=== PATIENT | female | born 1950 | race African-American/Black ===

== ENCOUNTER → 2016-10-07 | Outpatient (CLI) | payer MEDICARE, MEDICAID ==
[2016-10-07 10:15] LABS: ABSOLUTE EOSINOPHILS # (AUTO) 0.4 10^3/uL (0.0-0.6); ABSOLUTE LYMPHOCYTES (AUTO) 3.2 10^3/uL (0.5-4.7); ABSOLUTE MONOCYTES (AUTO) 0.6 10^3/uL (0.1-1.4); ABSOLUTE NEUT (AUTO) 3.3 10^3/uL (1.7-8.2); BASOPHILS % (AUTO) 0.5 % (0-2); HEMATOCRIT 30.3 % (36.0-47.0); HEMOGLOBIN 10.1 g/dL (12.0-15.5); LYMPHOCYTES % (AUTO) 42.7 % (13-45); MEAN CORPUSCULAR HEMOGLOBIN 30.5 pg (27.0-33.4); MEAN CORPUSCULAR HGB CONC 33.4 g/dL (32.0-36.0); MEAN CORPUSCULAR VOLUME 92 fl (80-97); RED BLOOD COUNT 3.31 10^6/uL (3.72-5.28); RED CELL DISTRIBUTION WIDTH 13.5 % (11.5-14.0); SEGMENTED NEUTROPHILS % (AUTO) 43.8 % (42-78); WHITE BLOOD COUNT 7.5 10^3/uL (4.0-10.5)
[2016-10-07 10:35] LABS: ANION GAP 16 (5-19); BLOOD UREA NITROGEN 60 mg/dL (7-20); CALCIUM 10.3 mg/dL (8.4-10.2); CARBON DIOXIDE 27 mmol/L (22-30); CHLORIDE 102 mmol/L (98-107); GLUCOSE 62 mg/dL (75-110); POTASSIUM 4.3 mmol/L (3.6-5.0); SODIUM 145.4 mmol/L (137-145)
== END ==
LOC: OD 09:39
PROVIDERS: ATTEND Internal Medicine Nephrology
DX: N18.4 Chronic kidney disease, stage 4 (severe) (principal); E55.9 Vitamin D deficiency, unspecified
CPT/HCPCS: 36415; 80048; 82306; 85025

== ENCOUNTER 2016-10-20 19:29 | Emergency (ER) | payer MEDICARE, MEDICAID ==
[2016-10-20] MEDS ORDERED: ASPIRIN 81 MG TABLET, CHEWABLE PO ONE (19:32)
[2016-10-20] MEDS ORDERED: PREDNISONE 20 MG TABLET PO ONE (19:56)
[2016-10-20] MEDS ORDERED: IPRATROPIUM/ALBUTEROL 0.5-2.5 MG/3 ML AMPUL NEB ONE ×3 (19:56→20:46)
--- NOTE | 2016-10-20 19:59 | ER Document Report ---
ED Cardiac - General Chief Complaint: Chest Pain Stated Complaint: CHEST PAIN Time seen by provider: 19:50 Notes: Patient is a 66-year-old female that comes by EMS for chief complaint of chest pain and shortness of breath, shortness of breath is worse on exertion. Patient states she has been dealing with a cough and productive green sputum for about 1 week, she reports intermittent wheezing. She was given nitroglycerin by EMS, she states she has minimal to no pain on the left side now. Pain did radiate towards her left shoulder area. She denies fever. She has a history of asthma, denies smoking. Other past medical history includes hypertension, hyperlipidemia, type II diabetes, diabetic neuropathy, Stage IV CKD, PATRICIA, and a history of a "silent [place]" with no stents (she reports that several years ago they did a heart catheterization but he "saw there was nothing wrong and stopped"). Patient reports she has completed an antibiotic already. TRAVEL OUTSIDE OF THE [place] IN LAST 30 DAYS: No - Related Data Allergies/Adverse Reactions: aspirin [Aspirin] Allergy (Mild, Verified 07/06/13 11:59) upset stomach Sulfa (Sulfonamide Antibiotics) Allergy (Mild, Verified 07/06/13 12:00) sores in mouth Past Medical History - General Information source: Patient - Social History Smoking Status: Never Smoker Frequency of alcohol use: None Drug Abuse: None Lives with: Family Family History: Reviewed & Not Pertinent - Past Medical History Cardiac Medical History: Reports: Hx Hypercholesterolemia, Hx Hypertension - medicated Denies: Hx Heart Attack Pulmonary Medical History: Reports: Hx Asthma - medicated/no hospitalizations Neurological Medical History: Denies: Hx Cerebrovascular Accident, Hx Seizures Endocrine Medical History: Reports: Hx Diabetes Mellitus Type 2 GI Medical History: Denies: Hx Hepatitis, Hx Hiatal Hernia, Hx Ulcer Infectious Medical History: Denies: Hx Hepatitis Past Surgical History: Reports: Hx Cardiac Catheterization. Denies: Hx Hysterectomy, Hx Mastectomy, Hx Open Heart Surgery, Hx Pacemaker Review of Systems - Review of Systems Constitutional: No symptoms reported EENT: No symptoms reported Cardiovascular: See HPI Respiratory: See HPI Gastrointestinal: No symptoms reported Genitourinary: No symptoms reported Female Genitourinary: No symptoms reported Musculoskeletal: No symptoms reported Skin: No symptoms reported Hematologic/Lymphatic: No symptoms reported Neurological/Psychological: No symptoms reported Physical Exam - Vital signs Vitals: Resp 22 H 10/20/16 19:32 Interpretation: Normal - General General appearance: Appears well In distress: None - HEENT Head: Normocephalic, Atraumatic Eyes: Normal Conjunctiva: Normal Extraocular movements intact: Yes Eyelashes: Normal Pupils: PERRL Sinus: Normal Nasal: Normal Mouth/Lips: Normal Mucous membranes: Normal Pharynx: Normal Neck: Normal - Respiratory Respiratory status: No respiratory distress. No: Labored, Tachypnea Chest status: Tender - Patient with tender generally over the left chest which is reproducible Breath sounds: Decreased air movement, Nonproductive cough - Congested nonproductive cough, Rhonchi, Wheezing - Coarse expiratory wheezes and a few scattered rhonchi bilaterally Chest palpation: Normal - Cardiovascular Rhythm: Regular Heart sounds: Normal auscultation Murmur: No - Abdominal Inspection: Normal Distension: No distension Bowel sounds: Normal Tenderness: Nontender. No: Tender, Guarding Organomegaly: No organomegaly - Back Back: Normal, Nontender - Extremities General upper extremity: Normal inspection, Nontender, Normal color, Normal ROM , Normal temperature General lower extremity: Other - 1+ bilateral lower extremity edema, no abnormal erythema noted, normal distal N/V exam - Neurological Neuro grossly intact: Yes Cognition: Normal Orientation: AAOx4 [place] Coma Scale Eye Opening: Spontaneous [place] Coma Scale Verbal: Oriented [place] Coma Scale Motor: Obeys Commands [place] Coma Scale Total: 15 Speech: Normal Cranial nerves: Normal Cerebellar coordination: Normal Motor strength normal: LUE, RUE, LLE, RLE Additional motor exam normals: 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 Patient also has a mild amount of tenderness over the left anterior chest wall.. Patient not complaining of chest pain on reevaluation. Cardiac enzymes negative despite days of reported symptoms. Chest x-ray clear, patient is not hypoxic, patient initially with loud expiratory wheezing and a few scattered rhonchi, after treatments patient improved, after additional treatments symptoms completely resolved. Patient states she feels excellent now. Suspect respiratory source of patient's symptoms, will treat for bronchitis/upper respiratory infection, cover for pneumonia, patient is to follow-up closely with her primary provider, discussed return precautions in detail, patient and significant other states satisfaction and agreement. Also discussed monitoring blood glucose, patient states that she does a sliding scale and is good at doing this and has done this before. - Vital Signs Vital signs: Temp Pulse Resp BP Pulse Ox 97.8 F 72 18 132/73 H 97 10/20/16 19:43 10/20/16 19:43 10/21/16 00:51 10/21/16 00:51 10/21/16 00:51 - Laboratory Result Diagrams: 10/20/16 20:30 10/20/16 21:40 Laboratory results interpreted by me: 10/20/16 10/20/16 20:30 21:40 RBC 2.99 L Hgb 9.1 L Hct 27.0 L BUN 44 H Creatinine 1.99 H Est GFR ( Amer) 30 L Est GFR (Non-Af Amer) 25 L AST 37 H Creatine Kinase 284 H Discharge - Discharge Clinical Impression: Wheezing, Cough Upper respiratory infection Qualifiers: URI type: unspecified URI Qualified Code(s): J06.9 - Acute upper respiratory infection, unspecified Chest pain Qualifiers: Chest pain type: unspecified Qualified Code(s): R07.9 - Chest pain, unspecified Condition: Stable Disposition: HOME, SELF-CARE Additional Instructions: Chest x-ray does not show pneumonia, examination and symptoms are consistent with upper respiratory infection/bronchitis. Take the prednisone as directed, check her sugars and adjust her insulin because this will elevate your blood sugars. Take the azithromycin as directed, take [place] if needed for pain/cough, if you do take the Colace to avoid constipation. Follow-up in the next several days with your primary care physician for additional management. Return to emergency department immediately for any concerning or worsening symptoms including worsening breathing, fever, pain, etc. Prescriptions: Azithromycin [Zithromax 250 mg Tablet] 250 mg PO ASDIR PRN #6 tablet PRN Reason: Docusate Sodium [Colace 100 mg Capsule] 100 mg PO DAILY #30 capsule Hydrocodone/Acetaminophen [[place] 5-325 mg Tablet] 1 - 2 tab PO ASDIR #10 tablet Prednisone [Deltasone 10 mg Tablet] 10 mg PO ASDIR PRN #21 tablet PRN Reason: Referrals: AYUSH WISEMAN MD [Primary Care Provider] - Follow up as needed
[2016-10-20] MEDS ORDERED: MORPHINE SULFATE 10 MG/ML INJ IV ONE (20:47)
[2016-10-20 20:54] LABS: ABSOLUTE EOSINOPHILS # (AUTO) 0.4 10^3/uL (0.0-0.6); ABSOLUTE LYMPHOCYTES (AUTO) 2.7 10^3/uL (0.5-4.7); ABSOLUTE MONOCYTES (AUTO) 0.8 10^3/uL (0.1-1.4); ABSOLUTE NEUT (AUTO) 4.6 10^3/uL (1.7-8.2); BASOPHILS % (AUTO) 0.4 % (0-2); EOSINOPHILS % (AUTO) 5.1 % (0-6); HEMOGLOBIN 9.1 g/dL (12.0-15.5); HGB HCT DIFFERENCE 0.3; LYMPHOCYTES % (AUTO) 31.5 % (13-45); MEAN CORPUSCULAR HEMOGLOBIN 30.6 pg (27.0-33.4); MEAN CORPUSCULAR HGB CONC 33.8 g/dL (32.0-36.0); MEAN CORPUSCULAR VOLUME 90 fl (80-97); MONOCYTES % (AUTO) 9.5 % (3-13); RED BLOOD COUNT 2.99 10^6/uL (3.72-5.28); RED CELL DISTRIBUTION WIDTH 13.8 % (11.5-14.0); SEGMENTED NEUTROPHILS % (AUTO) 53.5 % (42-78); WHITE BLOOD COUNT 8.7 10^3/uL (4.0-10.5)
[2016-10-20] MEDS: MAGNESIUM SULFATE/D5W 100 ML IV SCH ×2 (21:20→23:02)
[2016-10-20 22:32] LABS: ALANINE AMINOTRANSFERASE 33 U/L (9-52); ALBUMIN 3.8 g/dL (3.5-5.0); ALKALINE PHOSPHATASE 49 U/L (38-126); ANION GAP 13 (5-19); ASPARTATE AMINO TRANSFERASE 37 U/L (14-36); BILIRUBIN,DIRECT 0.2 mg/dL (0.0-0.4); BILIRUBIN,TOTAL 0.3 mg/dL (0.2-1.3); BLOOD UREA NITROGEN 44 mg/dL (7-20); CARBON DIOXIDE 30 mmol/L (22-30); CHLORIDE 100 mmol/L (98-107); CREATINE KINASE 284 U/L (30-135); CREATININE RESULT 1.99 mg/dL (0.52-1.25); GLUCOSE 98 mg/dL (75-110); POTASSIUM 4.1 mmol/L (3.6-5.0); SODIUM 143.3 mmol/L (137-145); TOTAL PROTEIN 7.1 g/dL (6.3-8.2)
[2016-10-20 22:44] LABS: CREATINE KINASE MB 1.59 ng/mL (<4.55); TROPONIN I < 0.012 ng/mL
[2016-10-21 00:58] VITALS: BP 132/73
--- NOTE | 2016-10-21 08:25 | EKG REPORT ---
SEVERITY:- ABNORMAL ECG - SINUS RHYTHM : Confirmed by: Aron Haskins MD 21-Oct-2016 08:24:29
== END 2016-10-21 01:00 | disposition home or self-care (01) ==
LOC: ER 19:29
DX: J06.9 Acute upper respiratory infection, unspecified (principal); R07.9 Chest pain, unspecified; R06.02 Shortness of breath; R05 Cough; J45.909 Unspecified asthma, uncomplicated; E11.40 Type 2 diabetes mellitus with diabetic neuropathy, unspecified; I12.9 Hypertensive chronic kidney disease with stage 1 through stage 4 chronic kidney disease, or unspecified chronic kidney disease; E11.22 Type 2 diabetes mellitus with diabetic chronic kidney disease; N18.4 Chronic kidney disease, stage 4 (severe); R60.0 Localized edema; Z88.6 Allergy status to analgesic agent; Z88.2 Allergy status to sulfonamides
CPT/HCPCS: 93005; 94640 ×2; 99285; 96375; 96365; 96366; 36415; 87040; 82553; 82550; 85025; 80053; 84484; 83880; 71010; 93010; J2270; J3475; A9270 ×2; J7512; J7620

== ENCOUNTER 2017-01-04 19:09 | Observation (INO) | payer MEDICARE, MEDICAID ==
--- NOTE | 2017-01-04 19:58 | ER Document Report ---
ED Medical Screen (RME) - General Chief Complaint: Ankle Swelling Stated Complaint: FEET AND LEG SWELLING Time Seen by Provider: 01/04/17 19:49 Information source: Patient Notes: 56-year-old female who presents today with 2 weeks of some increased leg swelling above baseline. Patient has a history as recorded including chronic renal insufficiency and a myocardial infarction. Patient denies any chest pain. She states some baseline shortness of breath. She denies any nausea, vomiting, dysuria, diarrhea. She does state some subjective fevers. She has not taken any antipyretics today TRAVEL OUTSIDE OF THE [place] IN LAST 30 DAYS: No - Related Data Allergies/Adverse Reactions: aspirin [Aspirin] Allergy (Mild, Verified 01/04/17 19:44) upset stomach Sulfa (Sulfonamide Antibiotics) Allergy (Mild, Verified 01/04/17 19:44) sores in mouth Past Medical History - Past Medical History Cardiac Medical History: Reports: Hx Hypercholesterolemia, Hx Hypertension - medicated Denies: Hx Heart Attack Pulmonary Medical History: Reports: Hx Asthma - medicated/no hospitalizations Neurological Medical History: Denies: Hx Cerebrovascular Accident, Hx Seizures Endocrine Medical History: Reports: Hx Diabetes Mellitus Type 2 Renal/ Medical History: Denies: Hx Peritoneal Dialysis GI Medical History: Denies: Hx Hepatitis, Hx Hiatal Hernia, Hx Ulcer Infectious Medical History: Denies: Hx Hepatitis Past Surgical History: Reports: Hx Cardiac Catheterization. Denies: Hx Hysterectomy, Hx Mastectomy, Hx Open Heart Surgery, Hx Pacemaker Physical Exam - Vital signs Vitals: Temp Pulse Resp BP Pulse Ox 98.1 F 94 20 140/84 H 100 01/04/17 19:46 01/04/17 19:46 01/04/17 19:46 01/04/17 19:46 01/04/17 19:46 Course - Vital Signs Vital signs: Temp Pulse Resp BP Pulse Ox 98.1 F 94 20 140/84 H 100 01/04/17 19:46 01/04/17 19:46 01/04/17 19:46 01/04/17 19:46 01/04/17 19:46
--- NOTE | 2017-01-04 21:16 | RADIOLOGY REPORT (SQ) ---
EXAM DESCRIPTION: CHEST PA/LAT COMPLETED DATE/TIME: 01/04/2017 9:06 pm REASON FOR STUDY: Increased leg swelling COMPARISON: None. EXAM PARAMETERS: NUMBER OF VIEWS: two views TECHNIQUE: Digital Frontal and Lateral radiographic views of the chest acquired. RADIATION DOSE: NA LIMITATIONS: none FINDINGS: LUNGS AND PLEURA: No opacities, masses or pneumothorax. No pleural effusion. MEDIASTINUM AND HILAR STRUCTURES: No masses or contour abnormalities. HEART AND VASCULAR STRUCTURES: Heart normal size. No evidence for failure. BONES: No acute findings. HARDWARE: None in the chest. OTHER: No other significant finding. IMPRESSION: NO SIGNIFICANT RADIOGRAPHIC FINDING IN THE CHEST. TECHNICAL DOCUMENTATION: JOB ID: [id number] [employer]- All Rights Reserved
[2017-01-04 21:29] LABS: ABSOLUTE BASOPHILS # (AUTO) 0.1 10^3/uL (0.0-0.2); ABSOLUTE EOSINOPHILS # (AUTO) 0.5 10^3/uL (0.0-0.6); ABSOLUTE MONOCYTES (AUTO) 0.8 10^3/uL (0.1-1.4); ABSOLUTE NEUT (AUTO) 4.6 10^3/uL (1.7-8.2); BASOPHILS % (AUTO) 0.7 % (0-2); EOSINOPHILS % (AUTO) 5.7 % (0-6); HEMATOCRIT 30.3 % (36.0-47.0); HEMOGLOBIN 9.9 g/dL (12.0-15.5); HGB HCT DIFFERENCE -0.6; LYMPHOCYTES % (AUTO) 33.6 % (13-45); MEAN CORPUSCULAR HEMOGLOBIN 29.8 pg (27.0-33.4); MEAN CORPUSCULAR HGB CONC 32.5 g/dL (32.0-36.0); MEAN CORPUSCULAR VOLUME 92 fl (80-97); RED BLOOD COUNT 3.31 10^6/uL (3.72-5.28); RED CELL DISTRIBUTION WIDTH 13.5 % (11.5-14.0); WHITE BLOOD COUNT 9.1 10^3/uL (4.0-10.5)
[2017-01-04 21:51] LABS: ANION GAP 15 (5-19); BLOOD UREA NITROGEN 99 mg/dL (7-20); CALCIUM 9.9 mg/dL (8.4-10.2); CARBON DIOXIDE 30 mmol/L (22-30); CHLORIDE 97 mmol/L (98-107); CREATININE RESULT 2.68 mg/dL (0.52-1.25); GLUCOSE 133 mg/dL (75-110); POTASSIUM 4.2 mmol/L (3.6-5.0); SODIUM 142.4 mmol/L (137-145)
[2017-01-04 22:03] LABS: TROPONIN I 0.013 ng/mL
--- NOTE | 2017-01-04 22:04 | EKG REPORT ---
SEVERITY:- ABNORMAL ECG - SINUS RHYTHM : Confirmed by: Rosaline Veliz 04-Jan-2017 22:04:27
--- NOTE | 2017-01-04 22:31 | ER Document Report ---
ED Extremity Problem, Lower - General Chief Complaint: Ankle Swelling Stated Complaint: FEET AND LEG SWELLING Time Seen by Provider: 01/04/17 19:49 Mode of Arrival: Ambulatory Information source: Patient TRAVEL OUTSIDE OF THE [place] IN LAST 30 DAYS: No - HPI Patient complains to provider of: Pain, Swelling Location: Leg Occurred: Other - 3 weeks Onset/Duration: Gradual Quality of pain: Achy, Fullness Severity: Moderate Pain Level: 3 Associated symptoms: denies: Chest pain, Short of breath Exacerbated by: Walking Relieved by: Nothing Notes: Patient is a 66-year-old female with a history of diabetes, hypertension, chronic kidney disease, who presents to the emergency room complaining of worsening bilateral lower extremity swelling over the past few weeks, she denies any chest pain or shortness of breath, she was recently started on metolazone daily but her symptoms have not improved at all, in fact have gotten a little worse, she reports pain from the heaviness of her feet, and difficulty walking, she denies any injury - Related Data Allergies/Adverse Reactions: aspirin [Aspirin] Allergy (Mild, Verified 01/04/17 19:44) upset stomach Sulfa (Sulfonamide Antibiotics) Allergy (Mild, Verified 01/04/17 19:44) sores in mouth Past Medical History - General Information source: Patient - Social History Smoking Status: Never Smoker Chew tobacco use (# tins/day): No Frequency of alcohol use: None Drug Abuse: None Family History: Reviewed & Not Pertinent Patient has suicidal ideation: No Patient has homicidal ideation: No - Past Medical History Cardiac Medical History: Reports: Hx Hypercholesterolemia, Hx Hypertension - medicated Denies: Hx Heart Attack Pulmonary Medical History: Reports: Hx Asthma - medicated/no hospitalizations Neurological Medical History: Denies: Hx Cerebrovascular Accident, Hx Seizures Endocrine Medical History: Reports: Hx Diabetes Mellitus Type 2 Renal/ Medical History: Denies: Hx Peritoneal Dialysis GI Medical History: Denies: Hx Hepatitis, Hx Hiatal Hernia, Hx Ulcer Infectious Medical History: Denies: Hx Hepatitis Past Surgical History: Reports: Hx Cardiac Catheterization. Denies: Hx Hysterectomy, Hx Mastectomy, Hx Open Heart Surgery, Hx Pacemaker Review of Systems - Review of Systems Constitutional: No symptoms reported EENT: No symptoms reported Cardiovascular: See HPI, Edema Respiratory: No symptoms reported Gastrointestinal: No symptoms reported Genitourinary: No symptoms reported Female Genitourinary: No symptoms reported Musculoskeletal: No symptoms reported Skin: No symptoms reported Hematologic/Lymphatic: No symptoms reported Neurological/Psychological: No symptoms reported -: Yes All other systems reviewed and negative Physical Exam - Vital signs Vitals: Temp Pulse Resp BP Pulse Ox 98.1 F 94 20 140/84 H 100 01/04/17 19:46 01/04/17 19:46 01/04/17 19:46 01/04/17 19:46 01/04/17 19:46 Interpretation: Normal - General General appearance: Appears well, Alert - HEENT Head: Normocephalic, Atraumatic Eyes: Normal Pupils: PERRL - Respiratory Respiratory status: No respiratory distress Chest status: Nontender Breath sounds: Normal Chest palpation: Normal - Cardiovascular Rhythm: Regular Heart sounds: Normal auscultation Murmur: No - Abdominal Inspection: Normal Distension: No distension Bowel sounds: Normal Tenderness: Nontender Organomegaly: No organomegaly - Back Back: Normal, Nontender - Extremities General upper extremity: Normal inspection, Nontender, Normal color, Normal ROM , Normal temperature General lower extremity: Edema, Normal temperature. No: Sin's sign - Neurological Neuro grossly intact: Yes Cognition: Normal Orientation: AAOx4 [place] Coma Scale Eye Opening: Spontaneous [place] Coma Scale Verbal: Oriented [place] Coma Scale Motor: Obeys Commands [place] Coma Scale Total: 15 Speech: Normal Motor strength normal: LUE, RUE, LLE, RLE Sensory: Normal - Psychological Associated symptoms: Normal affect, Normal mood - Skin Skin Temperature: Warm Skin Moisture: Dry Skin Color: Normal Course - Re-evaluation Re-evalutation: 01/04/17 22:31 Patient was discussed with Dr. Billingsley, immigration guard regarding her worsening kidney function with a BUN of 99 and a creatinine of 2.6, which is worse than her usual kidney function, Dr. Hadrin recommends that we admit the patient for gentle diuresis with IV Lasix, this plan was discussed with Dr. Donahue who ultimately is in agreement but also recommends that we hydrate patient gently given her worsening renal function which is likely a result of overdiuresis, this plan was discussed with patient who is in agreement - Vital Signs Vital signs: Temp Pulse Resp BP Pulse Ox 98.1 F 94 17 118/73 99 01/04/17 19:46 01/04/17 19:46 01/04/17 21:12 07/18/17 21:12 01/04/17 21:12 - Laboratory Result Diagrams: 01/04/17 21:15 01/04/17 21:15 Laboratory results interpreted by me: 01/04/17 01/04/17 21:15 21:15 RBC 3.31 L Hgb 9.9 L Hct 30.3 L Chloride 97 L BUN 99 H Creatinine 2.68 H Est GFR ( Amer) 21 L Est GFR (Non-Af Amer) 18 L Glucose 133 H - Diagnostic Test Radiology reviewed: Image reviewed, Reports reviewed - EKG Interpretation by Me EKG shows normal: Sinus rhythm Rate: Normal Rhythm: NSR Discharge - Discharge Clinical Impression: Peripheral edema Acute on chronic renal failure Qualifiers: Acute renal failure type: unspecified Chronic kidney disease stage: unspecified stage Qualified Code(s): N17.9 - Acute kidney failure, unspecified Condition: Stable Disposition: ADMITTED OBSERVATION Admitting Provider: [facility] Admitted: Telemetry
[2017-01-04] MEDS ORDERED: NORMAL SALINE 1000 ML 1,000 ML IV PRN ×2 (22:33→23:50)
[2017-01-04 22:50] LABS: APPEARANCE,URINE CLEAR; BILIRUBIN,URINE NEGATIVE (NEGATIVE); GLUCOSE, URINE NEGATIVE (NEGATIVE); KETONES,URINE NEGATIVE (NEGATIVE); LEUKOCYTE ESTERASE,URINE NEGATIVE (NEGATIVE); NITRITE,URINE NEGATIVE (NEGATIVE); PROTEIN,URINE NEGATIVE (NEGATIVE); URINE SPECIFIC GRAVITY 1.006; UROBILINOGEN,URINE NEGATIVE mg/dL (<2.0)
[2017-01-04] MEDS ORDERED: ACETAMINOPHEN 325 MG TABLET PO PRN (23:50)
[2017-01-04] MEDS ORDERED: ZOLPIDEM TARTRATE 5 MG TABLET PO PRN (23:51)
[2017-01-04] MEDS ORDERED: DOCUSATE SODIUM 100 MG CAPSULE PO PRN (23:52)
[2017-01-04] MEDS ORDERED: INSULIN GLARGINE,HUM.REC.ANLOG 1,000 UNIT/10 ML UNIT SUBCUT ONE (23:59)
[2017-01-05] MEDS ORDERED: GLUCAGON,HUMAN RECOMB 1 MG INJ IM PRN (01:41)
[2017-01-05] MEDS ORDERED: DEXTROSE 50%-WATER SYRINGE 12.5 GM/25 ML DOSE IV PRN (01:41)
[2017-01-05] MEDS ORDERED: DEXTROSE 40% GEL 15 GM TUBE PO PRN (01:41)
[2017-01-05] MEDS ORDERED: DEXTROSE 40% GEL 15 GM TUBE X 2 PO PRN (01:41)
[2017-01-05] MEDS ORDERED: DEXTROSE 50%-WATER SYRINGE 25 GM/50 ML DOSE IV PRN (01:41)
[2017-01-05] MEDS: HEPARIN SOD (PORCINE) 5,000 UNIT/ML 1 ML SYRINGE SUBCUT SCH ×3 (05:59→21:19)
[2017-01-05] MEDS: LANSOPRAZOLE 30 MG TAB.RAP.DR PO SCH (06:00)
[2017-01-05 06:30] LABS: ABSOLUTE BASOPHILS # (AUTO) 0.1 10^3/uL (0.0-0.2); ABSOLUTE EOSINOPHILS # (AUTO) 0.4 10^3/uL (0.0-0.6); ABSOLUTE LYMPHOCYTES (AUTO) 3.2 10^3/uL (0.5-4.7); ABSOLUTE MONOCYTES (AUTO) 0.8 10^3/uL (0.1-1.4); ABSOLUTE NEUT (AUTO) 4.4 10^3/uL (1.7-8.2); BASOPHILS % (AUTO) 0.6 % (0-2); HEMATOCRIT 27.5 % (36.0-47.0); HGB HCT DIFFERENCE -0.5; LYMPHOCYTES % (AUTO) 35.9 % (13-45); MEAN CORPUSCULAR HEMOGLOBIN 29.6 pg (27.0-33.4); MEAN CORPUSCULAR HGB CONC 32.6 g/dL (32.0-36.0); MEAN CORPUSCULAR VOLUME 91 fl (80-97); MONOCYTES % (AUTO) 9.2 % (3-13); RED BLOOD COUNT 3.02 10^6/uL (3.72-5.28); RED CELL DISTRIBUTION WIDTH 13.5 % (11.5-14.0); SEGMENTED NEUTROPHILS % (AUTO) 49.3 % (42-78); WHITE BLOOD COUNT 8.9 10^3/uL (4.0-10.5)
[2017-01-05 07:05] LABS: ALANINE AMINOTRANSFERASE 33 U/L (9-52); ALBUMIN 3.6 g/dL (3.5-5.0); ALKALINE PHOSPHATASE 51 U/L (38-126); ANION GAP 12 (5-19); ASPARTATE AMINO TRANSFERASE 27 U/L (14-36); BILIRUBIN,DIRECT 0.3 mg/dL (0.0-0.4); BILIRUBIN,TOTAL 0.3 mg/dL (0.2-1.3); BLOOD UREA NITROGEN 85 mg/dL (7-20); CALCIUM 9.6 mg/dL (8.4-10.2); CARBON DIOXIDE 27 mmol/L (22-30); CHLORIDE 101 mmol/L (98-107); CHOLESTEROL 117.45 mg/dL (0-200); CREATININE RESULT 2.35 mg/dL (0.52-1.25); Direct HDL 43 mg/dL (>40); GLUCOSE 129 mg/dL (75-110); TOTAL PROTEIN 6.9 g/dL (6.3-8.2); TRIGLYCERIDES 142 mg/dL (<150)
[2017-01-05 07:16] LABS: DIRECT LDL 44 mg/dL (<100)
[2017-01-05] MEDS ORDERED: SIMVASTATIN 40 MG TABLET PO SCH (08:00)
[2017-01-05] MEDS: DOCUSATE SODIUM 100 MG CAPSULE PO SCH (10:00)
[2017-01-05] MEDS: FUROSEMIDE 40 MG TABLET PO SCH (10:00)
[2017-01-05] MEDS: LEVOTHYROXINE SODIUM 0.05 MG TABLET PO SCH (10:00)
[2017-01-05] MEDS: LOSARTAN POTASSIUM 50 MG TABLET PO SCH (10:02)
--- NOTE | 2017-01-05 12:51 | PDOC H&P ---
History of Present Illness Admission Date/PCP: 01/05/17 00:32 AYUSH WISEMAN Patient complains of: She is having decreased urinary output and nettie. leg swelling History of Present Illness: JAKE ANTUNEZ is a 66 year old female with hx of DM2/HTN/Hyperlipidemia/ Hypothyroidism/CKD stage 4/Leg swelling/Anemia of chronic disease/Gout/Vitamin D def/Rhinitis/Chronic back pain/Depression/Morbid obesity, whowas having worsening leg swelling and decreased urinary out put and Metolazone 5 m qd was added by her PCP 2 days ago.But on account of worsening of symptoms. she went to ER and her BUN/Cr had increased from 44/1/9 in to 99/2.68. She was admitted for observation. Past Medical History Cardiac Medical History: Reports: Hyperlipidema, Hypertension - medicated Denies: Myocardial Infarction Pulmonary Medical History: Reports: Asthma - medicated/no hospitalizations Neurological Medical History: Denies: Seizures Endocrine Medical History: Reports: Diabetes Mellitus Type 2 GI Medical History: Denies: Hepatitis, Hiatal Hernia Hematology: Reports: Anemia - medicated Denies: Sickle Cell Disease Past Surgical History Past Surgical History: Reports: Cardiac Catheterization Denies: Amputation, Hysterectomy, Mastectomy, Pacemaker Social History Smoking Status: Never Smoker Drugs: None - Advance Directive Resuscitation Status: Full Code Family History Family History: Reviewed & Not Pertinent Parental Family History Reviewed: Yes Children Family History Reviewed: Yes Sibling(s) Family History Reviewed.: Yes Medication/Allergy Home Medications: Carvedilol [Coreg 6.25 mg Tablet] 6.25 mg PO Q12 01/05/17 Clonazepam [Klonopin 1 mg Tablet] 1 mg PO QHS 01/05/17 Desvenlafaxine Succinate [Pristiq ER] 50 mg PO QHS 01/05/17 Ergocalciferol (Vitamin D2) [Drisdol 50,000 Unit (1.25MG) Capsule] 1 cap PO GARCIA@ 1000 01/05/17 Febuxostat [Uloric 80 mg Tablet] 80 mg PO DAILY 01/05/17 Fenofibrate 160 mg PO DAILY 01/05/17 Ferrous Sulfate [Feosol 325 mg Tablet] 325 mg PO DAILY 01/05/17 Furosemide [Lasix] 40 mg PO DAILY 01/05/17 Hydrocodone Bit/Acetaminophen [Hydrocodon-Acetaminophen 5-325] 1 tab PO BIDP PRN 01/05/17 Insulin Glargine,Hum.rec.anlog [Lantus Solostar] 30 unit SQ QHS 01/05/17 Insulin Lispro [Humalog Kwikpen] 0 unit SQ TID 01/05/17 Levothyroxine Sodium [Synthroid 50 Mcg Tablet] 50 mcg PO QAM 01/05/17 Liraglutide [Victoza 2-Galdino] 1.8 mg SQ DAILY 01/05/17 Losartan Potassium [Cozaar 50 mg Tablet] 50 mg PO DAILY 01/05/17 Metolazone [Zaroxolyn 5 Mg Tablet] 5 mg PO NOON 01/05/17 Montelukast Sodium [Singulair 10 mg Tablet] 10 mg PO QHS 01/05/17 [place]-3 Acid Ethyl Esters [Lovaza 1 gm Capsule] 2 gm PO DAILY 01/05/17 Quetiapine Fumarate [Seroquel Xr] 300 mg PO QHS 01/05/17 Simvastatin 40 mg PO QHS 01/05/17 Allergies/Adverse Reactions: aspirin [Aspirin] Allergy (Mild, Verified 01/04/17 19:44) upset stomach Sulfa (Sulfonamide Antibiotics) Allergy (Mild, Verified 01/04/17 19:44) sores in mouth Review of Systems All systems: as per PMH Constitutional: PRESENT: as per HPI Eyes: PRESENT: as per HPI Ears: PRESENT: as per HPI Nose, Mouth, and Throat: PRESENT: as per HPI Breasts: PRESENT: as per HPI Cardiovascular: PRESENT: as per HPI, edema Respiratory: PRESENT: as per HPI Gastrointestinal: PRESENT: as per HPI Genitourinary: PRESENT: difficulty urinating Musculoskeletal: PRESENT: as per HPI Integumentary: PRESENT: as per HPI Neurological: PRESENT: as per HPI Psychiatric: PRESENT: as per HPI Endocrine: PRESENT: as per HPI Hematologic/Lymphatic: PRESENT: as per HPI Physical Exam Vital Signs: Temp Pulse Resp BP Pulse Ox 98.3 F 81 16 129/58 H 97 01/05/17 12:00 01/05/17 12:00 01/05/17 12:00 01/05/17 12:00 01/05/17 12:00 Intake & Output 01/04/17 01/05/17 01/06/17 06:59 06:59 06:59 Intake Total 220 Balance 220 Weight 133.9 kg General appearance: PRESENT: no acute distress, cooperative, morbidly obese Head exam: PRESENT: atraumatic, normocephalic Eye exam: PRESENT: EOMI, PERRLA Ear exam: PRESENT: TM's normal bilaterally Mouth exam: PRESENT: neck supple, tongue midline Neck exam: PRESENT: full ROM Respiratory exam: PRESENT: clear to auscultation nettie, symmetrical Cardiovascular exam: PRESENT: +S1, +S2 Pulses: PRESENT: +2 pedal pulses bilateral GI/Abdominal exam: PRESENT: normal bowel sounds, soft Rectal exam: PRESENT: deferred Extremities exam: PRESENT: full ROM Musculoskeletal exam: PRESENT: full ROM Neurological exam: PRESENT: alert, awake, oriented to person, oriented to place , oriented to time Psychiatric exam: PRESENT: normal mood Results Laboratory Results: 01/05/17 06:12 01/05/17 06:12 01/05/17 01/05/17 01/05/17 06:12 06:12 06:12 WBC 8.9 RBC 3.02 L Hgb 9.0 L Hct 27.5 L MCV 91 MCH 29.6 MCHC 32.6 RDW 13.5 Plt Count 214 Seg Neutrophils % 49.3 Lymphocytes % 35.9 Monocytes % 9.2 Eosinophils % 5.0 Basophils % 0.6 Absolute Neutrophils 4.4 Absolute Lymphocytes 3.2 Absolute Monocytes 0.8 Absolute Eosinophils 0.4 Absolute Basophils 0.1 Sodium 140.0 Potassium 4.0 Chloride 101 Carbon Dioxide 27 Anion Gap 12 BUN 85 H Creatinine 2.35 H Est GFR ( Amer) 25 L Est GFR (Non-Af Amer) 21 L Glucose 129 H Calcium 9.6 Total Bilirubin 0.3 AST 27 ALT 33 Alkaline Phosphatase 51 Total Protein 6.9 Albumin 3.6 Triglycerides 142 Cholesterol 117.45 LDL Cholesterol Direct 44 VLDL Cholesterol 28.0 HDL Cholesterol 43 TSH 3.06 Impressions: Chest X-Ray 01/04/17 19:56 IMPRESSION: NO SIGNIFICANT RADIOGRAPHIC FINDING IN THE CHEST. Assessment & Plan - Diagnosis (1) Acute on chronic renal failure Qualifiers: Acute renal failure type: unspecified Chronic kidney disease stage: stage 4 (severe) Qualified Code(s): N17.9 - Acute kidney failure, unspecified; N18.9 - Chronic kidney disease, unspecified Is this a current diagnosis for this admission?: YesPlan: Ct with cautious IV fluids normal saline at 50cc/hr; avoid all nephrotoxics; strict input/output chart; daily weight; monitor chemitries daily; f/u brand engineer, Dr Billingsley. (2) Diabetes mellitus type 2 in obese Is this a current diagnosis for this admission?: YesPlan: Ct with accucheck qac, qhs slidding scale with humalog insulin [facility] protocol; Lantus insulin 30 iu qhs subcut; Victoza 1.8 mg subcut daily; 1800 calorie ADA diet. (3) Hypertension Is this a current diagnosis for this admission?: YesPlan: Ct with Losartan 50 mg qd po; Coreg 6.25 mg BID po; 2 g sodium diet. (4) Hyperlipidemia Is this a current diagnosis for this admission?: YesPlan: Ct with Simvastatin 40 mg qhs po; Fenofibrate 160 mg qd po; 200 mg cholesterol diet. (5) Hypothyroidism Is this a current diagnosis for this admission?: YesPlan: Ct with Levothyroxine 50 mcg qd po. (6) Asthma Is this a current diagnosis for this admission?: YesPlan: Ct with Ventolin HFA- 2 puffs q6h prn; Singulair 10 mg qd po; Dulera 200/5 1 puff BID. (7) Leg swelling Is this a current diagnosis for this admission?: YesPlan: Ct with Lasix 40 mg qd po; elevate legs; hold Metolazone 5 mg po qd due to worsening kidney function. (8) Rhinitis, allergic Qualifiers: Chronicity: unspecified Is this a current diagnosis for this admission?: YesPlan: Ct with Flonase nasal spray- 1 spray daily. (9) Gout Qualifiers: Gout site: unspecified site Is this a current diagnosis for this admission?: YesPlan: Hold Uloric 80 mg qd po due to acute kidney injury. (10) Lumbago Qualifiers: Chronicity: unspecified Is this a current diagnosis for this admission?: YesPlan: Ct with [place] 5 /325 1 BID po prn. (11) Vitamin D deficiency Is this a current diagnosis for this admission?: YesPlan: Ct with Vitamin D [id number] weekly po. (12) Depression Qualifiers: Depression Type: major depressive disorder Is this a current diagnosis for this admission?: YesPlan: Ct with Pristig 50 mg qd po; Seroquel 300 mg qhs po. (13) Anxiety disorder Qualifiers: Anxiety disorder type: generalized anxiety disorder Qualified Code(s ): F41.1 - Generalized anxiety disorder Is this a current diagnosis for this admission?: YesPlan: CT with Clonazepm 1 mg qhs po. (14) DVT prophylaxis Is this a current diagnosis for this admission?: YesPlan: Ct with Heparin 5000iu q8h subcut; SCD. - Time Time Spent: 30 to 50 Minutes Medications reviewed and adjusted accordingly: Yes Anticipated discharge: Home Within: within 36 hours
[2017-01-05] MEDS ORDERED: MONTELUKAST SODIUM 10 MG TABLET PO SCH (18:00)
[2017-01-05] MEDS: INSULIN LISPRO 100 UNIT/ML 3 ML VIAL SUBCUT PRN ×2 (18:10→21:19)
--- NOTE | 2017-01-05 19:43 | PDOC CONSULTATION ---
Consultation Consult Date: 01/05/17 Attending physician:: AYUSH WISEMAN Consult reason:: I was asked by the emergency room physician last night for Dr. Donahue to see the patient because of worsening kidney function. History of Present Illness Admission Date/PCP: 01/05/17 00:32 AYUSH WISEMAN History of Present Illness: JAKE ANTUNEZ is a 66 year old female with hx of DM2/HTN/Hyperlipidemia/ Hypothyroidism/CKD stage 4/Leg swelling/Anemia of chronic disease/Gout/Vitamin D def/Rhinitis/Chronic back pain/Depression/Morbid obesity, who was having worsening leg swelling and decreased urinary out put and recently started on metolazone 5 milligrams qd was added by her PCP 2 days ago. But on account of worsening of symptoms. she went to ER and her BUN/Cr had increased from 44/1.9 he second 2016 to 99/2.68. She was admitted for observation. She was started on very careful IV fluid hydration. Her kidney function today shows a BUN of 85 and creatinine of 2.25 with estimated GFR of 25 which is slightly better. Patient's urine output is not being 25. Patient admits that her leg swelling today has been improved. She said that yesterday she had some oozing skin lesions because of too much leg swelling. I asked her about salt intake she denies it, however just tonight she ate food from the [employer] restaurant in addition to her dinner from the hospital. She denies any chest pains no shortness of breath no any other complaints. Past Medical History Cardiac Medical History: Reports: CHF-Systolic, Hyperlipidemia, Hypertension- primary Pulmonary Medical History: Reports: Asthma - medicated/no hospitalizations Endocrine Medical History: Reports: Diabetes Mellitus Type 2, Hypothyroidism, Obesity Complications of Diabetes: Reports: Nephropathy Renal/ Medical History: Reports: Chronic Kidney Disease Stage IV Musculoskeltal Medical History: Reports: Gout Psychiatric Medical History: Reports: Depression, General Anxiety Disorder Hematology Medical History: Reports Anemia of Chronic Kidney Disease, Reports Iron Deficiency Anemia Past Surgical History Past Surgical History: Reports: Appendectomy, Cardiac Catheterization, Other - Breast biopsy Social History Information Source: Patient, Office Lives with: Family Smoking Status: Former Smoker Frequency of Alcohol Use: None Drugs: None - Advance Directive Resuscitation Status: Full Code Family History Family History: Chronic Kidney Disease - Mother and sister, CVA - Sister, DM - Maternal grandmother, Hypertension - Monitor, Malignancy - Mother Parental Family History Reviewed: Yes Children Family History Reviewed: Yes Sibling(s) Family History Reviewed.: Yes Medication/Allergy Home Medications: Carvedilol [Coreg 6.25 mg Tablet] 6.25 mg PO Q12 01/05/17 Clonazepam [Klonopin 1 mg Tablet] 1 mg PO QHS 01/05/17 Desvenlafaxine Succinate [Pristiq ER] 50 mg PO QHS 01/05/17 Ergocalciferol (Vitamin D2) [Drisdol 50,000 Unit (1.25MG) Capsule] 1 cap PO GARCIA@ 1000 01/05/17 Febuxostat [Uloric 80 mg Tablet] 80 mg PO DAILY 01/05/17 Fenofibrate 160 mg PO DAILY 01/05/17 Ferrous Sulfate [Feosol 325 mg Tablet] 325 mg PO DAILY 01/05/17 Furosemide [Lasix] 40 mg PO DAILY 01/05/17 Hydrocodone Bit/Acetaminophen [Hydrocodon-Acetaminophen 5-325] 1 tab PO BIDP PRN 01/05/17 Insulin Glargine,Hum.rec.anlog [Lantus Solostar] 30 unit SQ QHS 01/05/17 Insulin Lispro [Humalog Kwikpen] 0 unit SQ TID 01/05/17 Levothyroxine Sodium [Synthroid 50 Mcg Tablet] 50 mcg PO QAM 01/05/17 Liraglutide [Victoza 2-Galdino] 1.8 mg SQ DAILY 01/05/17 Losartan Potassium [Cozaar 50 mg Tablet] 50 mg PO DAILY 01/05/17 Metolazone [Zaroxolyn 5 Mg Tablet] 5 mg PO NOON 01/05/17 Montelukast Sodium [Singulair 10 mg Tablet] 10 mg PO QHS 01/05/17 [place]-3 Acid Ethyl Esters [Lovaza 1 gm Capsule] 2 gm PO DAILY 01/05/17 Quetiapine Fumarate [Seroquel Xr] 300 mg PO QHS 01/05/17 Simvastatin 40 mg PO QHS 01/05/17 Allergies/Adverse Reactions: aspirin [Aspirin] Allergy (Mild, Verified 01/04/17 19:44) upset stomach Sulfa (Sulfonamide Antibiotics) Allergy (Mild, Verified 01/04/17 19:44) sores in mouth Review of Systems All systems: reviewed and no additional remarkable complaints except as stated Review of Systems: Constitutional: ABSENT: chills, fatigue, fever(s), headache(s), weight gain, weight loss Eyes: ABSENT: visual disturbances Ears: ABSENT: hearing changes Cardiovascular: ABSENT: chest pain, dyspnea on exertion, orthropnea, palpitations; admits lower extremity edema Respiratory: ABSENT: cough, dyspnea, hemoptysis Gastrointestinal: ABSENT: abdominal pain, constipation, diarrhea, hematemesis, hematochezia, nausea, vomiting Genitourinary: ABSENT: dysuria, hematuria Musculoskeletal: ABSENT: joint swelling Integumentary: ABSENT: rash, wounds Neurological: ABSENT: abnormal gait, abnormal speech, confusion, dizziness, focal weakness, numbness, syncope Psychiatric: ABSENT: anxiety, depression Endocrine: ABSENT: cold intolerance, heat intolerance, polydipsia, polyuria Hematologic/Lymphatic: ABSENT: easy bleeding, easy bruising, lymphadenopathy Physical Exam Vital Signs: Temp Pulse Resp BP Pulse Ox 98.2 F 85 15 143/80 H 99 01/05/17 16:00 01/05/17 16:00 01/05/17 16:00 01/05/17 16:00 01/05/17 16:00 Intake & Output 01/04/17 01/05/17 01/06/17 06:59 06:59 06:59 Intake Total 220 435 Balance 220 435 Weight 133.9 kg Exam: General appearance: no acute distress, cooperative, well-developed, well- nourished Head exam: PRESENT: atraumatic, normocephalic Eye exam: PRESENT: Conjunctiva [place], EOMI, PERRLA. ABSENT: conjunctival injection, scleral icterus Mouth exam: PRESENT: moist, neck supple, tongue midline Neck exam: PRESENT: full ROM. ABSENT: carotid bruit, JVD, lymphadenopathy, thyromegaly Respiratory exam: PRESENT: clear to auscultation bilaterally. ABSENT: rales, rhonchi, stridor, wheezes Cardiovascular exam: PRESENT: RRR, +S1, +S2. ABSENT: systolic murmur Pulses: PRESENT: normal radial pulses, normal dorsalis pedis pulses GI/Abdominal exam: PRESENT: normal bowel sounds, soft. ABSENT: guarding, mass, tenderness Rectal exam: deferred Extremities exam: PRESENT: full ROM. Grade 1 bilateral lower extremity pitting edema. Currently there is no oozing lesions in the lower extremities which the patient said has improved since yesterday. ABSENT: calf tenderness Musculoskeletal: PRESENT: full ROM. ABSENT: deformity Neurological exam: PRESENT: alert, Awake, Oriented to person, Oriented to place , Oriented to time, reflexes normal, CN II-XII grossly intact. ABSENT: motor sensory deficit Psychiatric exam: PRESENT: appropriate affect, normal mood. ABSENT: homicidal ideation, suicidal ideation Skin exam: PRESENT: intact, dry, warm. ABSENT: rash Results Laboratory Results: 01/05/17 06:12 01/05/17 06:12 01/05/17 01/05/17 01/05/17 06:12 06:12 06:12 WBC 8.9 RBC 3.02 L Hgb 9.0 L Hct 27.5 L MCV 91 MCH 29.6 MCHC 32.6 RDW 13.5 Plt Count 214 Seg Neutrophils % 49.3 Lymphocytes % 35.9 Monocytes % 9.2 Eosinophils % 5.0 Basophils % 0.6 Absolute Neutrophils 4.4 Absolute Lymphocytes 3.2 Absolute Monocytes 0.8 Absolute Eosinophils 0.4 Absolute Basophils 0.1 Sodium 140.0 Potassium 4.0 Chloride 101 Carbon Dioxide 27 Anion Gap 12 BUN 85 H Creatinine 2.35 H Est GFR ( Amer) 25 L Est GFR (Non-Af Amer) 21 L Glucose 129 H Calcium 9.6 Total Bilirubin 0.3 AST 27 ALT 33 Alkaline Phosphatase 51 Total Protein 6.9 Albumin 3.6 Triglycerides 142 Cholesterol 117.45 LDL Cholesterol Direct 44 VLDL Cholesterol 28.0 HDL Cholesterol 43 TSH 3.06 Impressions: Chest X-Ray 01/04/17 19:56 IMPRESSION: NO SIGNIFICANT RADIOGRAPHIC FINDING IN THE CHEST. Assessment & Plan - Diagnosis (1) Acute kidney injury Is this a current diagnosis for this admission?: YesPlan: This may be due to recent mild overdiuresis. Currently improving with very careful fluid hydration. No indication of any acute renal replacement therapy. (2) Acute prerenal azotemia Is this a current diagnosis for this admission?: Yes (3) Chronic kidney disease, stage IV (severe) Is this a current diagnosis for this admission?: YesPlan: This is due to combination of diabetes and hypertension. (4) Peripheral edema Is this a current diagnosis for this admission?: YesPlan: Patient might have an underlying chronic lymphedema. Advised patient for low- salt diet. Continue maintenance Lasix at 40 mg once a day. (5) Diabetes mellitus type 2 in obese Is this a current diagnosis for this admission?: Yes (6) Hypertension Is this a current diagnosis for this admission?: Yes - Notes Notes: Thank you very much for this consultation. - Time Time Spent: 50 to 70 Minutes
[2017-01-05] MEDS ORDERED: INSULIN GLARGINE,HUM.REC.ANLOG 300 UNIT/3 ML INSULN.PEN SUBCUT SCH (22:00)
[2017-01-05] MEDS ORDERED: QUETIAPINE FUMARATE 100 MG TABLET PO SCH (22:00)
[2017-01-06] MEDS: HEPARIN SOD (PORCINE) 5,000 UNIT/ML 1 ML SYRINGE SUBCUT SCH (06:13)
[2017-01-06] MEDS: LANSOPRAZOLE 30 MG TAB.RAP.DR PO SCH (06:13)
[2017-01-06 06:29] LABS: ALANINE AMINOTRANSFERASE 29 U/L (9-52); ALBUMIN 4.1 g/dL (3.5-5.0); ALKALINE PHOSPHATASE 55 U/L (38-126); ANION GAP 13 (5-19); ASPARTATE AMINO TRANSFERASE 30 U/L (14-36); BILIRUBIN,DIRECT 0.4 mg/dL (0.0-0.4); BILIRUBIN,TOTAL 0.4 mg/dL (0.2-1.3); BLOOD UREA NITROGEN 71 mg/dL (7-20); CALCIUM 9.9 mg/dL (8.4-10.2); CARBON DIOXIDE 28 mmol/L (22-30); CHLORIDE 100 mmol/L (98-107); CREATININE RESULT 2.01 mg/dL (0.52-1.25); GLUCOSE 103 mg/dL (75-110); POTASSIUM 4.1 mmol/L (3.6-5.0); SODIUM 140.8 mmol/L (137-145); TOTAL PROTEIN 7.6 g/dL (6.3-8.2)
[2017-01-06 06:39] LABS: ABSOLUTE EOSINOPHILS # (AUTO) 0.5 10^3/uL (0.0-0.6); ABSOLUTE LYMPHOCYTES (AUTO) 3.4 10^3/uL (0.5-4.7); ABSOLUTE MONOCYTES (AUTO) 0.7 10^3/uL (0.1-1.4); ABSOLUTE NEUT (AUTO) 3.2 10^3/uL (1.7-8.2); BASOPHILS % (AUTO) 0.6 % (0-2); EOSINOPHILS % (AUTO) 6.7 % (0-6); HEMATOCRIT 28.5 % (36.0-47.0); HEMOGLOBIN 9.4 g/dL (12.0-15.5); HGB HCT DIFFERENCE -0.3; LYMPHOCYTES % (AUTO) 43.3 % (13-45); MEAN CORPUSCULAR HEMOGLOBIN 29.8 pg (27.0-33.4); MEAN CORPUSCULAR HGB CONC 32.9 g/dL (32.0-36.0); MEAN CORPUSCULAR VOLUME 91 fl (80-97); MONOCYTES % (AUTO) 9.4 % (3-13); RED BLOOD COUNT 3.15 10^6/uL (3.72-5.28); RED CELL DISTRIBUTION WIDTH 13.4 % (11.5-14.0); WHITE BLOOD COUNT 7.9 10^3/uL (4.0-10.5)
[2017-01-06] MEDS: FUROSEMIDE 40 MG TABLET PO SCH (08:22)
[2017-01-06] MEDS: DOCUSATE SODIUM 100 MG CAPSULE PO SCH (09:44)
[2017-01-06] MEDS: LEVOTHYROXINE SODIUM 0.05 MG TABLET PO SCH (09:44)
[2017-01-06] MEDS: LOSARTAN POTASSIUM 50 MG TABLET PO SCH (09:44)
--- NOTE | 2017-01-06 10:05 | PDOC DISCHARGE SUMMARY ---
General - Admit/Disc Date/PCP Admission Date/Primary Care Provider: 01/05/17 00:32 AYUSH WISEMAN Discharge Date: 01/06/17 - Discharge Diagnosis (1) Acute on chronic renal failure Is this a current diagnosis for this admission?: Yes (2) Diabetes mellitus type 2 in obese Is this a current diagnosis for this admission?: Yes (3) Hypertension Is this a current diagnosis for this admission?: Yes (4) Hyperlipidemia Is this a current diagnosis for this admission?: Yes (5) Hypothyroidism Is this a current diagnosis for this admission?: Yes (6) Asthma Is this a current diagnosis for this admission?: Yes (7) Leg swelling Is this a current diagnosis for this admission?: Yes (8) Rhinitis, allergic Is this a current diagnosis for this admission?: Yes (9) Gout Is this a current diagnosis for this admission?: Yes (10) Lumbago Is this a current diagnosis for this admission?: Yes (11) Vitamin D deficiency Is this a current diagnosis for this admission?: Yes (12) Depression Is this a current diagnosis for this admission?: Yes (13) Anxiety disorder Is this a current diagnosis for this admission?: Yes (14) DVT prophylaxis Is this a current diagnosis for this admission?: Yes - Additional Information Resuscitation Status: Full Code Discharge Activity: Activity As Tolerated Home Medications: Carvedilol [Coreg 6.25 mg Tablet] 6.25 mg PO Q12 01/05/17 Clonazepam [Klonopin 1 mg Tablet] 1 mg PO QHS 01/05/17 Desvenlafaxine Succinate [Pristiq] 50 mg PO QHS 01/05/17 Ergocalciferol (Vitamin D2) [Drisdol 50,000 unit (1.25MG) Capsule] 1 cap PO GARCIA@ 1000 01/05/17 Febuxostat [Uloric 80 mg Tablet] 80 mg PO DAILY 01/05/17 Fenofibrate 160 mg PO DAILY 01/05/17 Ferrous Sulfate [Feosol 325 mg Tablet] 325 mg PO DAILY 01/05/17 Furosemide [Lasix] 40 mg PO DAILY 01/05/17 Hydrocodone Bit/Acetaminophen [Hydrocodon-Acetaminophen 5-325] 1 tab PO BIDP PRN 01/05/17 Insulin Glargine,Hum.rec.anlog [Lantus Solostar] 30 unit SQ QHS 01/05/17 Insulin Lispro [Humalog Kwikpen U-100] 0 unit SQ TID 01/05/17 Levothyroxine Sodium [Synthroid 0.05 mg Tablet] 50 mcg PO QAM 01/05/17 Liraglutide [Victoza 2-Galdino] 1.8 mg SQ DAILY 01/05/17 Losartan Potassium [Cozaar 50 mg Tablet] 50 mg PO DAILY 01/05/17 Montelukast Sodium [Singulair 10 mg Tablet] 10 mg PO QHS 01/05/17 [place]-3 Acid Ethyl Esters [Lovaza 1 gm Capsule] 2 gm PO DAILY 01/05/17 Quetiapine Fumarate [Seroquel Xr] 300 mg PO QHS 01/05/17 Simvastatin 40 mg PO QHS 01/05/17 History of Present Illness History of Present Illness: JAKE ANTUNEZ is a 66 year old female with hx of DM2/HTN/Hyperlipidemia/ Hypothyroidism/CKD stage 4/Leg swelling/Anemia of chronic disease/Gout/Vitamin D def/Rhinitis/Chronic back pain/Depression/Morbid obesity, whowas having worsening leg swelling and decreased urinary out put and Metolazone 5 m qd was added by her PCP 2 days ago.But on account of worsening of symptoms. she went to ER and her BUN/Cr had increased from 44/1/9 in to 99/2.68. She was admitted for observation. Hospital Course Hospital Course: 66 yr ol woman who was admitted for acute kidney injury due to overdiuresis. She was admitted in medical floor and had cautious hydration with IF fluids normal saline. Her bUN/cr has improved remarkably and almost back to her baseline. We have discontinued Metolazone for now.She is stable and will be discharged home today to follow up with her PCP within 1 week. She will also follow up with her offal icer poultry,Dr Billingsley. Physical Exam Vital Signs: Temp Pulse Resp BP Pulse Ox 98.6 F 92 19 133/92 H 100 01/06/17 07:55 01/06/17 07:55 01/06/17 07:55 01/06/17 07:55 01/06/17 07:55 Intake & Output 01/05/17 01/06/17 01/07/17 06:59 06:59 06:59 Intake Total 220 2585 Balance 220 2585 Weight 133.9 kg 133.9 kg General appearance: PRESENT: no acute distress, cooperative, morbidly obese, well-nourished Head exam: PRESENT: atraumatic, normocephalic Eye exam: PRESENT: EOMI, PERRLA Ear exam: PRESENT: normal external ear exam Mouth exam: PRESENT: moist, tongue midline Neck exam: PRESENT: full ROM Respiratory exam: PRESENT: clear to auscultation nettie, symmetrical Cardiovascular exam: PRESENT: +S1, +S2 Pulses: PRESENT: +2 pedal pulses bilateral GI/Abdominal exam: PRESENT: normal bowel sounds, soft Rectal exam: PRESENT: deferred Extremities exam: PRESENT: full ROM Neurological exam: PRESENT: alert, awake, oriented to person, oriented to place , oriented to time Results Laboratory Results: 01/06/17 05:24 01/06/17 05:24 01/06/17 01/06/17 05:24 05:24 WBC 7.9 RBC 3.15 L Hgb 9.4 L Hct 28.5 L MCV 91 MCH 29.8 MCHC 32.9 RDW 13.4 Plt Count 223 Seg Neutrophils % 40.0 L Lymphocytes % 43.3 Monocytes % 9.4 Eosinophils % 6.7 H Basophils % 0.6 Absolute Neutrophils 3.2 Absolute Lymphocytes 3.4 Absolute Monocytes 0.7 Absolute Eosinophils 0.5 Absolute Basophils 0.0 Sodium 140.8 Potassium 4.1 Chloride 100 Carbon Dioxide 28 Anion Gap 13 BUN 71 H Creatinine 2.01 H Est GFR ( Amer) 30 L Est GFR (Non-Af Amer) 25 L Glucose 103 Calcium 9.9 Total Bilirubin 0.4 AST 30 ALT 29 Alkaline Phosphatase 55 Total Protein 7.6 Albumin 4.1 Impressions: Chest X-Ray 01/04/17 19:56 IMPRESSION: NO SIGNIFICANT RADIOGRAPHIC FINDING IN THE CHEST.
[2017-01-06 12:59] VITALS: BP 147/64
[2017-01-06] MEDS ORDERED: CLONAZEPAM 1 MG TABLET PO SCH (22:00)
[2017-01-06] MEDS ORDERED: SIMVASTATIN 40 MG TABLET PO SCH (22:00)
== END 2017-01-06 12:30 | disposition home or self-care (01) ==
LOC: ER 19:09 → UNDOADMIN 22:51 → EH 22:51 → 4S 01-05 00:15 → INTOOBSV 01-05 00:32 → 4S 01-05 00:32
PROVIDERS: ADMIT Internal Medicine; ATTEND Internal Medicine
DX: N17.9 Acute kidney failure, unspecified (principal); I13.0 Hypertensive heart and chronic kidney disease with heart failure and stage 1 through stage 4 chronic kidney disease, or unspecified chronic kidney disease; E11.22 Type 2 diabetes mellitus with diabetic chronic kidney disease; E11.21 Type 2 diabetes mellitus with diabetic nephropathy; N18.4 Chronic kidney disease, stage 4 (severe); D63.1 Anemia in chronic kidney disease; I50.20 Unspecified systolic (congestive) heart failure; E78.5 Hyperlipidemia, unspecified; E03.9 Hypothyroidism, unspecified; J45.909 Unspecified asthma, uncomplicated; M79.89 Other specified soft tissue disorders; J30.9 Allergic rhinitis, unspecified; M10.9 Gout, unspecified; G89.29 Other chronic pain; M54.5 Low back pain; E55.9 Vitamin D deficiency, unspecified; F32.9 Major depressive disorder, single episode, unspecified; F41.9 Anxiety disorder, unspecified; E66.01 Morbid (severe) obesity due to excess calories; F41.1 Generalized anxiety disorder; Z79.899 Other long term (current) drug therapy; Z79.4 Long term (current) use of insulin; Z84.1 Family history of disorders of kidney and ureter; Z90.49 Acquired absence of other specified parts of digestive tract; Z87.891 Personal history of nicotine dependence
CPT/HCPCS: 93005; 99285; 36415 ×3; 82962 ×2; 84443; 85025 ×3; 80048; 80053 ×2; 81001; 84484; 83036; 80061; 83880; 71020; 93010; G0378 ×4; A9270 ×16; J1644 ×2; J7030 ×2; J1815

== ENCOUNTER → 2017-02-10 | Outpatient (CLI) | payer MEDICARE, MEDICAID ==
[2017-02-10 11:09] LABS: ABSOLUTE EOSINOPHILS # (AUTO) 0.3 10^3/uL (0.0-0.6); ABSOLUTE LYMPHOCYTES (AUTO) 2.5 10^3/uL (0.5-4.7); ABSOLUTE MONOCYTES (AUTO) 0.6 10^3/uL (0.1-1.4); ABSOLUTE NEUT (AUTO) 4.2 10^3/uL (1.7-8.2); BASOPHILS % (AUTO) 0.5 % (0-2); EOSINOPHILS % (AUTO) 4.5 % (0-6); HEMATOCRIT 31.3 % (36.0-47.0); HEMOGLOBIN 10.1 g/dL (12.0-15.5); LYMPHOCYTES % (AUTO) 32.1 % (13-45); MEAN CORPUSCULAR HEMOGLOBIN 29.9 pg (27.0-33.4); MEAN CORPUSCULAR HGB CONC 32.2 g/dL (32.0-36.0); MEAN CORPUSCULAR VOLUME 93 fl (80-97); MONOCYTES % (AUTO) 7.5 % (3-13); RED BLOOD COUNT 3.36 10^6/uL (3.72-5.28); RED CELL DISTRIBUTION WIDTH 13.7 % (11.5-14.0); SEGMENTED NEUTROPHILS % (AUTO) 55.4 % (42-78); WHITE BLOOD COUNT 7.7 10^3/uL (4.0-10.5)
[2017-02-10 11:22] LABS: APPEARANCE,URINE CLEAR; BILIRUBIN,URINE NEGATIVE (NEGATIVE); GLUCOSE, URINE NEGATIVE (NEGATIVE); KETONES,URINE NEGATIVE (NEGATIVE); LEUKOCYTE ESTERASE,URINE NEGATIVE (NEGATIVE); NITRITE,URINE NEGATIVE (NEGATIVE); PROTEIN,URINE NEGATIVE (NEGATIVE); URINE SPECIFIC GRAVITY 1.006; UROBILINOGEN,URINE NEGATIVE mg/dL (<2.0)
[2017-02-10 11:40] LABS: ALBUMIN 4.6 g/dL (3.5-5.0); ANION GAP 12 (5-19); BLOOD UREA NITROGEN 57 mg/dL (7-20); CALCIUM 10.6 mg/dL (8.4-10.2); CARBON DIOXIDE 29 mmol/L (22-30); CHLORIDE 100 mmol/L (98-107); CREATININE RESULT 2.38 mg/dL (0.52-1.25); GLUCOSE 143 mg/dL (75-110); PHOSPHORUS 4.5 mg/dL (2.5-4.5); POTASSIUM 4.6 mmol/L (3.6-5.0); SODIUM 141.2 mmol/L (137-145)
[2017-02-11 10:10] LABS: VITAMIN D 25-HYDROXY 28.1 ng/mL (30.0-100.0)
[2017-02-12 10:37] LABS: CREATININE URINE 64.8 mg/dL (Not Estab.)
== END ==
LOC: OD 09:43
PROVIDERS: ATTEND Internal Medicine Nephrology
DX: N18.4 Chronic kidney disease, stage 4 (severe) (principal); E55.9 Vitamin D deficiency, unspecified
CPT/HCPCS: 36415; 80048; 81001; 82040; 82043; 82306; 82570; 83970; 84100; 85025

== ENCOUNTER 2017-05-26 17:33 | Emergency (ER) | payer MEDICARE, MEDICAID ==
--- NOTE | 2017-05-26 18:04 | ER Document Report ---
HPI - HPI Patient complains to provider of: Congested cough Onset: Other - 2 days Pain Level: 5 Context: 66-year-old diabetic obese female with asthma has congested cough for 2 days. She saw her primary care Dr. Donahue on Tuesday and did not have any symptoms. No fever. No chest pain or shortness of breath. No abdominal pain. No nausea vomiting or diarrhea. Glucose was 135 this morning. They have a nebulizer at home but no medicine for it. Associated Symptoms: None Exacerbated by: Denies Relieved by: Denies Similar symptoms previously: No Recently seen / treated by doctor: No - ROS ROS below otherwise negative: Yes Systems Reviewed and Negative: Yes All other systems reviewed and negative - REPRODUCTIVE Reproductive: DENIES: : Past Medical History - General Information source: Patient - Social History Smoking Status: Never Smoker Frequency of alcohol use: None Drug Abuse: None Lives with: Family Family History: Reviewed & Not Pertinent - Past Medical History Cardiac Medical History: Reports: Hx Hypercholesterolemia, Hx Hypertension - medicated Pulmonary Medical History: Reports: Hx Asthma - medicated/no hospitalizations Endocrine Medical History: Reports: Hx Diabetes Mellitus Type 2, Hx Hypothyroidism Renal/ Medical History: Denies: Hx Peritoneal Dialysis Musculoskeltal Medical History: Reports Hx Gout Psychiatric Medical History: Reports: Hx Depression Past Surgical History: Reports: Hx Appendectomy, Hx Cardiac Catheterization, Other - Breast biopsy Vertical Provider Document - CONSTITUTIONAL Agree With Documented VS: Yes Exam Limitations: No Limitations - INFECTION CONTROL TRAVEL OUTSIDE OF THE [place] IN LAST 30 DAYS: No - HEENT HEENT: Normocephalic, Pharyngeal Erythema - mild. negative: Conjuctival Injection, Tympanic Membrane Red, Tympanic Membrane Bulging - NECK Neck: Supple. negative: Lymphadenopathy-Left, Lymphadenopathy-Right - RESPIRATORY Respiratory: Wheezing - bilaterally O2 Sat by Pulse Oximetry: 99 - CARDIOVASCULAR Cardiovascular: Regular Rate, Regular Rhythm - GI/ABDOMEN Gastrointestinal: Abdomen Soft, Abdomen Non-Tender - BACK Back: Normal Inspection - MUSCULOSKELETAL/EXTREMETIES Musculoskeletal/Extremeties: WINTER VITAL - NEURO Level of Consciousness: Awake, Alert, Appropriate - DERM Integumentary: Warm, Dry, No Rash Course - Re-evaluation Re-evalutation: 05/26/17 19:45 Chest x-ray is negative per radiologist, no wheezing, coarse cough, because of her risk factors of diabetes I will treat her with an antibiotic prednisone and albuterol Nebules because they have a nebulizer that she can use at home. We will have her follow-up with her primary care doctor tomorrow. 05/26/17 19:54 - Vital Signs Vital signs: Temp Pulse Resp BP Pulse Ox 99.2 F 78 20 131/65 H 99 05/26/17 17:46 05/26/17 17:46 05/26/17 17:46 05/26/17 17:46 05/26/17 17:46 Discharge - Discharge Clinical Impression: diabetes Asthmatic bronchitis Qualifiers: Asthma severity: mild Asthma persistence: intermittent Asthma complication type : with acute exacerbation Qualified Code(s): J45.21 - Mild intermittent asthma with (acute) exacerbation Condition: Good Disposition: HOME, SELF-CARE Instructions: Asthma ([facility]), Azithromycin ([facility]), Bronchitis With Bronchospasm ( Wheezing) ([facility]), Inhaled Bronchodilators ([facility]), Steroid Medication Additional Instructions: go see dr. perez tomorrow for recheck return to ER if worse tonight use the nebulizer every 3-4 hours finish the antibiotics plenty of fluids watch your glucose carefully Prescriptions: Albuterol Sulfate [Ventolin 0.083% Neb 2.5 mg/3 mL Ampul] 2.5 mg NEB Q3HP PRN # 25 vial PRN Reason: Azithromycin [Zithromax] 250 mg PO DAILY #4 tablet Prednisone [Deltasone 20 mg Tablet] 40 mg PO DAILY #8 tablet Referrals: AYUSH PEREZ MD [ACTIVE STAFF] - Follow up tomorrow
[2017-05-26] MEDS ORDERED: IPRATROPIUM/ALBUTEROL 0.5-2.5 MG/3 ML AMPUL NEB ONE (18:10)
[2017-05-26] MEDS ORDERED: ALBUTEROL SULFATE 0.083% NEB 2.5 MG/3 ML AMPUL NEB ONE (18:10)
[2017-05-26] MEDS ORDERED: PREDNISONE 20 MG TABLET PO ONE (18:10)
--- NOTE | 2017-05-26 19:07 | RADIOLOGY REPORT (SQ) ---
EXAM DESCRIPTION: CHEST PA/LAT COMPLETED DATE/TIME: 05/26/2017 6:59 pm REASON FOR STUDY: cough, wheeze COMPARISON: 01/04/2017 EXAM PARAMETERS: NUMBER OF VIEWS: two views TECHNIQUE: Digital Frontal and Lateral radiographic views of the chest acquired. RADIATION DOSE: NA LIMITATIONS: none FINDINGS: LUNGS AND PLEURA: No opacities, masses or pneumothorax. No pleural effusion. MEDIASTINUM AND HILAR STRUCTURES: No masses or contour abnormalities. HEART AND VASCULAR STRUCTURES: Heart normal size. No evidence for failure. BONES: Chronic sclerotic changes of the humeral heads. HARDWARE: None in the chest. OTHER: No other significant finding. IMPRESSION: No acute pulmonary disease. TECHNICAL DOCUMENTATION: JOB ID: [id number] [employer]- All Rights Reserved
[2017-05-26] MEDS ORDERED: AZITHROMYCIN 250 MG TABLET PO ONE (19:52)
[2017-05-26 20:58] VITALS: BP 111/88
== END 2017-05-26 20:35 | disposition home or self-care (01) ==
LOC: ER 17:33
DX: J45.21 Mild intermittent asthma with (acute) exacerbation (principal); R05 Cough; I10 Essential (primary) hypertension; E11.9 Type 2 diabetes mellitus without complications
CPT/HCPCS: 94640 ×2; 99283; 71020; A9270 ×4; J7512; J7620

== ENCOUNTER → 2017-06-16 | Outpatient (CLI) | payer MEDICARE, MEDICAID ==
[2017-06-16 10:33] LABS: ABSOLUTE BASOPHILS # (AUTO) 0.1 10^3/uL (0.0-0.2); ABSOLUTE EOSINOPHILS # (AUTO) 0.4 10^3/uL (0.0-0.6); ABSOLUTE LYMPHOCYTES (AUTO) 2.1 10^3/uL (0.5-4.7); ABSOLUTE MONOCYTES (AUTO) 0.4 10^3/uL (0.1-1.4); ABSOLUTE NEUT (AUTO) 2.7 10^3/uL (1.7-8.2); BASOPHILS % (AUTO) 1.1 % (0-2); EOSINOPHILS % (AUTO) 6.3 % (0-6); HEMATOCRIT 31.2 % (36.0-47.0); HEMOGLOBIN 10.1 g/dL (12.0-15.5); LYMPHOCYTES % (AUTO) 37.1 % (13-45); MEAN CORPUSCULAR HEMOGLOBIN 29.1 pg (27.0-33.4); MEAN CORPUSCULAR HGB CONC 32.3 g/dL (32.0-36.0); MEAN CORPUSCULAR VOLUME 90 fl (80-97); MONOCYTES % (AUTO) 7.6 % (3-13); PLATELET COUNT 228 10^3/uL (150-450); RED BLOOD COUNT 3.46 10^6/uL (3.72-5.28); RED CELL DISTRIBUTION WIDTH 14.5 % (11.5-14.0); SEGMENTED NEUTROPHILS % (AUTO) 47.9 % (42-78); TOTAL CELLS COUNTED % (AUTO) 100 %; WHITE BLOOD COUNT 5.7 10^3/uL (4.0-10.5)
[2017-06-16 10:59] LABS: ANION GAP 15 (5-19); BLOOD UREA NITROGEN 45 mg/dL (7-20); CALCIUM 10.6 mg/dL (8.4-10.2); CARBON DIOXIDE 25 mmol/L (22-30); CHLORIDE 103 mmol/L (98-107); GLUCOSE 269 mg/dL (75-110); POTASSIUM 4.2 mmol/L (3.6-5.0); SODIUM 142.8 mmol/L (137-145)
== END ==
LOC: OD 09:37
PROVIDERS: ATTEND Internal Medicine Nephrology
DX: N18.4 Chronic kidney disease, stage 4 (severe) (principal); E55.9 Vitamin D deficiency, unspecified
CPT/HCPCS: 36415; 80048; 82306; 85025

== ENCOUNTER → 2017-10-24 | Outpatient (CLI) | payer MEDICARE, MEDICAID ==
[2017-10-24 11:43] LABS: ABSOLUTE EOSINOPHILS # (AUTO) 0.3 10^3/uL (0.0-0.6); ABSOLUTE LYMPHOCYTES (AUTO) 2.4 10^3/uL (0.5-4.7); ABSOLUTE MONOCYTES (AUTO) 0.5 10^3/uL (0.1-1.4); ABSOLUTE NEUT (AUTO) 3.4 10^3/uL (1.7-8.2); BASOPHILS % (AUTO) 0.7 % (0-2); EOSINOPHILS % (AUTO) 4.3 % (0-6); HEMATOCRIT 33.6 % (36.0-47.0); HEMOGLOBIN 11.1 g/dL (12.0-15.5); LYMPHOCYTES % (AUTO) 35.4 % (13-45); MEAN CORPUSCULAR HEMOGLOBIN 30.4 pg (27.0-33.4); MEAN CORPUSCULAR VOLUME 92 fl (80-97); MONOCYTES % (AUTO) 7.9 % (3-13); PLATELET COUNT 237 10^3/uL (150-450); RED BLOOD COUNT 3.65 10^6/uL (3.72-5.28); RED CELL DISTRIBUTION WIDTH 13.3 % (11.5-14.0); SEGMENTED NEUTROPHILS % (AUTO) 51.7 % (42-78); TOTAL CELLS COUNTED % (AUTO) 100 %; WHITE BLOOD COUNT 6.6 10^3/uL (4.0-10.5)
[2017-10-24 11:52] LABS: APPEARANCE,URINE CLEAR; BILIRUBIN,URINE NEGATIVE (NEGATIVE); COLOR,URINE COLORLESS; GLUCOSE, URINE 50 mg/dL (NEGATIVE); KETONES,URINE NEGATIVE (NEGATIVE); LEUKOCYTE ESTERASE,URINE NEGATIVE (NEGATIVE); NITRITE,URINE NEGATIVE (NEGATIVE); PROTEIN,URINE NEGATIVE (NEGATIVE); URINE SPECIFIC GRAVITY 1.005; UROBILINOGEN,URINE NEGATIVE mg/dL (<2.0)
[2017-10-24 11:56] LABS: ALBUMIN 4.5 g/dL (3.5-5.0); ANION GAP 15 (5-19); BLOOD UREA NITROGEN 60 mg/dL (7-20); CALCIUM 10.6 mg/dL (8.4-10.2); CARBON DIOXIDE 28 mmol/L (22-30); CHLORIDE 101 mmol/L (98-107); GLUCOSE 222 mg/dL (75-110); PHOSPHORUS 4.3 mg/dL (2.5-4.5); POTASSIUM 4.8 mmol/L (3.6-5.0); SODIUM 144.4 mmol/L (137-145)
[2017-10-25 12:38] LABS: CREATININE URINE 17.5 mg/dL (Not Estab.); MICROALBUMIN URINE 20.5 ug/mL (Not Estab.)
== END ==
LOC: OD 10:33
PROVIDERS: ATTEND Internal Medicine Nephrology
DX: N18.3 Chronic kidney disease, stage 3 (moderate) (principal); E11.21 Type 2 diabetes mellitus with diabetic nephropathy; D63.1 Anemia in chronic kidney disease; E55.9 Vitamin D deficiency, unspecified
CPT/HCPCS: 36415; 80048; 81001; 82040; 82043; 82306; 82570; 83970; 84100; 85025

== ENCOUNTER → 2017-12-05 | Outpatient (CLI) | payer MEDICARE, MEDICAID ==
--- NOTE | 2017-12-05 20:00 | WOMENS IMAGING REPORT ---
EXAM DESCRIPTION: BILAT SCREENING MAMMO W/CAD COMPLETED DATE/TIME: 12/05/2017 11:05 am REASON FOR STUDY: SCREENING MAMMO Z12.31 ENCNTR SCREEN MAMMOGRAM FOR MALIGNANT NEOPLASM OF SHELIA COMPARISON: 2014 07 TECHNIQUE: Standard craniocaudal and mediolateral oblique views of each breast recorded using Tempoliba l acquisition. LIMITATIONS: None. FINDINGS: Findings present which are benign by mammographic criteria. No suspicious masses, calcifi cations or architectural distortion. Pertinent benign findings: Stable bilateral breast parenchymal calcifications. Old bilateral stereot actic biopsy clips. Read with the assistance of CAD. .[facility] - R2 Cenova Version 1.3 .[facility] Imaging - R2 Cenova Version 1.3 .[facility] Imaging - R2 Cenova Version 2.4 .[facility] - R2 Cenova Version 2.4 .[facility] - R2 Field Observer Version 9.2 Benign mammographic findings may include one or more of the following: Smooth masses, popcorn/rim/co arse calcifications, asymmetries, post-procedure changes, and lesions with long-standing stability. IMPRESSION: BENIGN MAMMOGRAPHIC FINDINGS. BIRADS 2 BREAST DENSITY: b. There are scattered areas of fibroglandular density. BIRAD: 2 BENIGN FINDING(S) RECOMMENDATION: ROUTINE SCREENING Please continue yearly bilateral screening in November 2018. Consider bilateral screening tomosynthesis COMMENT: The patient has been notified of the results by letter per [place] requirements. Additional no tification policies are in place for contacting patient with suspicious or incomplete findings. Quality ID #[id number]: The [employer] recommends an annual screening mammogram for women aged 40 years or over. This facility utilizes a reminder system to ensure that all patients receive reminder letters, and/or direct phone calls for appointments. This includes reminders for routine scr eening mammograms, diagnostic mammograms, or other Breast Imaging Interventions when appropriate. Th is patient will be placed in the appropriate reminder system. The [employer] (ACR) has developed recommendations for screening MRI of the breast s in certain patient populations, to be used in conjunction with mammography. Breast MRI surveillanc e may be appropriate for women with more than 20% lifetime risk of developing breast cancer as deter mined by genetic testing, significant family history of the disease, or history of mantle radiation f or Hodgkins Disease. ACR Practice Guidelines 2008. TECHNICAL DOCUMENTATION: FINDING NUMBER: (1) ASSESSMENT: (1) JOB ID: [id number] [employer]- All Rights Reserved Reading location - IP/workstation name: [email or web address]
== END ==
LOC: WI 10:31
PROVIDERS: ATTEND Internal Medicine
DX: Z12.31 Encounter for screening mammogram for malignant neoplasm of breast (principal)
CPT/HCPCS: 77067

== ENCOUNTER → 2018-02-27 | Outpatient (CLI) | payer MEDICARE, MEDICAID ==
[2018-02-27 12:38] LABS: ABSOLUTE EOSINOPHILS # (AUTO) 0.3 10^3/uL (0.0-0.6); ABSOLUTE MONOCYTES (AUTO) 0.6 10^3/uL (0.1-1.4); ABSOLUTE NEUT (AUTO) 3.9 10^3/uL (1.7-8.2); BASOPHILS % (AUTO) 0.5 % (0-2); EOSINOPHILS % (AUTO) 4.1 % (0-6); HEMATOCRIT 32.9 % (36.0-47.0); LYMPHOCYTES % (AUTO) 38.5 % (13-45); MEAN CORPUSCULAR HEMOGLOBIN 29.9 pg (27.0-33.4); MEAN CORPUSCULAR HGB CONC 33.4 g/dL (32.0-36.0); MEAN CORPUSCULAR VOLUME 89 fl (80-97); MONOCYTES % (AUTO) 7.1 % (3-13); PLATELET COUNT 238 10^3/uL (150-450); RED BLOOD COUNT 3.68 10^6/uL (3.72-5.28); RED CELL DISTRIBUTION WIDTH 13.3 % (11.5-14.0); SEGMENTED NEUTROPHILS % (AUTO) 49.8 % (42-78); TOTAL CELLS COUNTED % (AUTO) 100 %; WHITE BLOOD COUNT 7.9 10^3/uL (4.0-10.5)
[2018-02-27 13:01] LABS: ANION GAP 13 (5-19); BLOOD UREA NITROGEN 47 mg/dL (7-20); CALCIUM 10.4 mg/dL (8.4-10.2); CARBON DIOXIDE 29 mmol/L (22-30); CHLORIDE 100 mmol/L (98-107); GLUCOSE 105 mg/dL (75-110); POTASSIUM 4.2 mmol/L (3.6-5.0); SODIUM 141.9 mmol/L (137-145)
== END ==
LOC: OD 10:38
PROVIDERS: ATTEND Internal Medicine
DX: E11.22 Type 2 diabetes mellitus with diabetic chronic kidney disease (principal); N18.3 Chronic kidney disease, stage 3 (moderate); D63.1 Anemia in chronic kidney disease
CPT/HCPCS: 36415; 80048; 85025

== ENCOUNTER → 2018-04-10 | Outpatient (CLI) | payer MEDICARE, MEDICAID ==
[2018-04-10 11:34] LABS: ABSOLUTE EOSINOPHILS # (AUTO) 0.3 10^3/uL (0.0-0.6); ABSOLUTE LYMPHOCYTES (AUTO) 2.6 10^3/uL (0.5-4.7); ABSOLUTE MONOCYTES (AUTO) 0.5 10^3/uL (0.1-1.4); ABSOLUTE NEUT (AUTO) 3.9 10^3/uL (1.7-8.2); BASOPHILS % (AUTO) 0.7 % (0-2); EOSINOPHILS % (AUTO) 3.7 % (0-6); HEMATOCRIT 32.4 % (36.0-47.0); HEMOGLOBIN 10.6 g/dL (12.0-15.5); LYMPHOCYTES % (AUTO) 35.9 % (13-45); MEAN CORPUSCULAR HGB CONC 32.9 g/dL (32.0-36.0); MEAN CORPUSCULAR VOLUME 88 fl (80-97); MONOCYTES % (AUTO) 6.8 % (3-13); PLATELET COUNT 273 10^3/uL (150-450); RED BLOOD COUNT 3.66 10^6/uL (3.72-5.28); RED CELL DISTRIBUTION WIDTH 13.6 % (11.5-14.0); SEGMENTED NEUTROPHILS % (AUTO) 52.9 % (42-78); TOTAL CELLS COUNTED % (AUTO) 100 %; WHITE BLOOD COUNT 7.3 10^3/uL (4.0-10.5)
[2018-04-10 11:59] LABS: ANION GAP 11 (5-19); BLOOD UREA NITROGEN 48 mg/dL (7-20); CARBON DIOXIDE 28 mmol/L (22-30); CHLORIDE 102 mmol/L (98-107); GLUCOSE 135 mg/dL (75-110); POTASSIUM 4.9 mmol/L (3.6-5.0); SODIUM 141.2 mmol/L (137-145)
[2018-04-11 13:37] LABS: CREATININE URINE 30.5 mg/dL (Not Estab.); MICROALBUMIN URINE 26.2 ug/mL (Not Estab.)
== END ==
LOC: OD 10:37
PROVIDERS: ATTEND Internal Medicine Nephrology
DX: E11.22 Type 2 diabetes mellitus with diabetic chronic kidney disease (principal); N18.3 Chronic kidney disease, stage 3 (moderate); D63.1 Anemia in chronic kidney disease
CPT/HCPCS: 36415; 80048; 82043; 82570; 85025

== ENCOUNTER → 2018-08-14 | Outpatient (CLI) | payer MEDICARE, MEDICAID ==
[2018-08-14 10:29] LABS: ABSOLUTE BASOPHILS # (AUTO) 0.1 10^3/uL (0.0-0.2); ABSOLUTE EOSINOPHILS # (AUTO) 0.2 10^3/uL (0.0-0.6); ABSOLUTE LYMPHOCYTES (AUTO) 2.1 10^3/uL (0.5-4.7); ABSOLUTE MONOCYTES (AUTO) 0.6 10^3/uL (0.1-1.4); ABSOLUTE NEUT (AUTO) 4.7 10^3/uL (1.7-8.2); BASOPHILS % (AUTO) 0.9 % (0-2); EOSINOPHILS % (AUTO) 2.9 % (0-6); HEMATOCRIT 33.9 % (36.0-47.0); HEMOGLOBIN 11.2 g/dL (12.0-15.5); LYMPHOCYTES % (AUTO) 26.9 % (13-45); MEAN CORPUSCULAR HEMOGLOBIN 29.3 pg (27.0-33.4); MEAN CORPUSCULAR VOLUME 89 fl (80-97); MONOCYTES % (AUTO) 7.8 % (3-13); PLATELET COUNT 256 10^3/uL (150-450); RED BLOOD COUNT 3.82 10^6/uL (3.72-5.28); RED CELL DISTRIBUTION WIDTH 13.4 % (11.5-14.0); SEGMENTED NEUTROPHILS % (AUTO) 61.5 % (42-78); TOTAL CELLS COUNTED % (AUTO) 100 %; WHITE BLOOD COUNT 7.7 10^3/uL (4.0-10.5)
[2018-08-14 10:53] LABS: ALBUMIN 4.2 g/dL (3.5-5.0); ANION GAP 8 (5-19); BLOOD UREA NITROGEN 38 mg/dL (7-20); CARBON DIOXIDE 29 mmol/L (22-30); CHLORIDE 105 mmol/L (98-107); GLUCOSE 205 mg/dL (75-110); IRON(TIBC) 39.8 ug/dL (37-170); PHOSPHORUS 3.3 mg/dL (2.5-4.5); POTASSIUM 4.7 mmol/L (3.6-5.0); SODIUM 142.3 mmol/L (137-145)
[2018-08-14 10:55] LABS: APPEARANCE,URINE SLIGHTLY-CLOUDY; BILIRUBIN,URINE NEGATIVE (NEGATIVE); COLOR,URINE YELLOW; GLUCOSE, URINE 50 mg/dL (NEGATIVE); KETONES,URINE NEGATIVE (NEGATIVE); LEUKOCYTE ESTERASE,URINE LARGE (NEGATIVE); NITRITE,URINE NEGATIVE (NEGATIVE); PROTEIN,URINE NEGATIVE (NEGATIVE); URINE SPECIFIC GRAVITY 1.011; UROBILINOGEN,URINE NEGATIVE mg/dL (<2.0)
[2018-08-15 10:38] LABS: MICROALBUMIN URINE 122.3 ug/mL (Not Estab.)
== END ==
LOC: OD 09:47
PROVIDERS: ATTEND Internal Medicine Nephrology
DX: E11.21 Type 2 diabetes mellitus with diabetic nephropathy (principal); N18.3 Chronic kidney disease, stage 3 (moderate); D63.1 Anemia in chronic kidney disease; R80.9 Proteinuria, unspecified
CPT/HCPCS: 36415; 80048; 81001; 82040; 82043; 82306; 82570; 82728; 83540; 83550; 83970; 84100; 85025

== ENCOUNTER → 2018-09-21 | Outpatient (CLI) | payer MEDICARE, MEDICAID ==
--- NOTE | 2018-09-21 16:21 | RADIOLOGY REPORT (SQ) ---
EXAM DESCRIPTION: SHOULDER LEFT 2 OR MORE VIEWS COMPLETED DATE/TIME: 09/21/2018 4:06 pm REASON FOR STUDY: M19.012 PRIMARY OSTEOARTHRITIS, LEFT SHOULDER M19.012 PRIMARY OSTEOARTHRITIS, LEF T SHOULDER COMPARISON: 04/12/2016 NUMBER OF VIEWS: Three views. TECHNIQUE: Internal rotation, external rotation, and Y view images acquired of the left shoulder. LIMITATIONS: None. FINDINGS: MINERALIZATION: Normal. BONES: No acute fracture or dislocation. No worrisome bone lesions. JOINTS: Marked severe advanced glenohumeral arthrosis with mild to moderate interval progression sug gested since the prior examination. VISUALIZED LUNGS AND RIBS: No pneumothorax. No rib fracture. SOFT TISSUES: No radiopaque foreign body. OTHER: No other significant finding. IMPRESSION: 1. Marked severe advanced glenohumeral arthrosis with mild to moderate interval progres kourtney suggested since examination dated 04/12/2016. 2. No acute osseous findings. TECHNICAL DOCUMENTATION: JOB ID: [id number] [employer]- All Rights Reserved Reading location - IP/workstation name: [email or web address]
== END ==
LOC: RAD 15:50
PROVIDERS: ATTEND Internal Medicine
DX: M19.012 Primary osteoarthritis, left shoulder (principal)

== ENCOUNTER → 2018-11-23 | Outpatient (CLI) | payer MEDICARE, MEDICAID ==
[2018-11-23 10:52] LABS: ABSOLUTE EOSINOPHILS # (AUTO) 0.3 10^3/uL (0.0-0.6); ABSOLUTE LYMPHOCYTES (AUTO) 2.9 10^3/uL (0.5-4.7); ABSOLUTE MONOCYTES (AUTO) 0.5 10^3/uL (0.1-1.4); ABSOLUTE NEUT (AUTO) 2.5 10^3/uL (1.7-8.2); BASOPHILS % (AUTO) 0.8 % (0-2); EOSINOPHILS % (AUTO) 4.8 % (0-6); HEMATOCRIT 35.5 % (36.0-47.0); HEMOGLOBIN 11.6 g/dL (12.0-15.5); LYMPHOCYTES % (AUTO) 46.6 % (13-45); MEAN CORPUSCULAR HGB CONC 32.6 g/dL (32.0-36.0); MEAN CORPUSCULAR VOLUME 89 fl (80-97); MONOCYTES % (AUTO) 7.3 % (3-13); PLATELET COUNT 255 10^3/uL (150-450); RED CELL DISTRIBUTION WIDTH 13.8 % (11.5-14.0); SEGMENTED NEUTROPHILS % (AUTO) 40.5 % (42-78); TOTAL CELLS COUNTED % (AUTO) 100 %; WHITE BLOOD COUNT 6.2 10^3/uL (4.0-10.5)
[2018-11-23 11:15] LABS: ANION GAP 11 (5-19); BLOOD UREA NITROGEN 41 mg/dL (7-20); CALCIUM 10.2 mg/dL (8.4-10.2); CARBON DIOXIDE 27 mmol/L (22-30); CHLORIDE 106 mmol/L (98-107); GLUCOSE 113 mg/dL (75-110); POTASSIUM 4.4 mmol/L (3.6-5.0); SODIUM 143.7 mmol/L (137-145)
[2018-11-24 12:38] LABS: CREATININE URINE 81.1 mg/dL (Not Estab.); MICROALBUMIN URINE 57.8 ug/mL (Not Estab.)
== END ==
LOC: OD 09:45
PROVIDERS: ATTEND Internal Medicine Nephrology
DX: E11.22 Type 2 diabetes mellitus with diabetic chronic kidney disease (principal); I12.9 Hypertensive chronic kidney disease with stage 1 through stage 4 chronic kidney disease, or unspecified chronic kidney disease; N18.3 Chronic kidney disease, stage 3 (moderate); D63.1 Anemia in chronic kidney disease
CPT/HCPCS: 36415; 80048; 82043; 82570; 85025

== ENCOUNTER → 2019-03-26 | Outpatient (CLI) | payer MEDICARE, MEDICAID ==
[2019-03-26 09:54] LABS: ABSOLUTE BASOPHILS # (AUTO) 0.1 10^3/uL (0.0-0.2); ABSOLUTE EOSINOPHILS # (AUTO) 0.2 10^3/uL (0.0-0.6); ABSOLUTE LYMPHOCYTES (AUTO) 2.8 10^3/uL (0.5-4.7); ABSOLUTE MONOCYTES (AUTO) 0.5 10^3/uL (0.1-1.4); ABSOLUTE NEUT (AUTO) 5.3 10^3/uL (1.7-8.2); BASOPHILS % (AUTO) 1.1 % (0-2); EOSINOPHILS % (AUTO) 2.1 % (0-6); HEMATOCRIT 35.1 % (36.0-47.0); HEMOGLOBIN 11.7 g/dL (12.0-15.5); LYMPHOCYTES % (AUTO) 31.4 % (13-45); MEAN CORPUSCULAR HEMOGLOBIN 29.6 pg (27.0-33.4); MEAN CORPUSCULAR HGB CONC 33.3 g/dL (32.0-36.0); MEAN CORPUSCULAR VOLUME 89 fl (80-97); MONOCYTES % (AUTO) 6.1 % (3-13); PLATELET COUNT 232 10^3/uL (150-450); RED BLOOD COUNT 3.95 10^6/uL (3.72-5.28); RED CELL DISTRIBUTION WIDTH 13.2 % (11.5-14.0); SEGMENTED NEUTROPHILS % (AUTO) 59.3 % (42-78); TOTAL CELLS COUNTED % (AUTO) 100 %; WHITE BLOOD COUNT 8.9 10^3/uL (4.0-10.5)
[2019-03-26 10:23] LABS: APPEARANCE,URINE CLOUDY; BILIRUBIN,URINE NEGATIVE (NEGATIVE); COLOR,URINE YELLOW; GLUCOSE, URINE NEGATIVE (NEGATIVE); KETONES,URINE NEGATIVE (NEGATIVE); LEUKOCYTE ESTERASE,URINE LARGE (NEGATIVE); NITRITE,URINE POSITIVE (NEGATIVE); PROTEIN,URINE NEGATIVE (NEGATIVE); URINE SPECIFIC GRAVITY 1.009; UROBILINOGEN,URINE NEGATIVE mg/dL (<2.0)
[2019-03-26 10:25] LABS: ALBUMIN 4.2 g/dL (3.5-5.0); ANION GAP 13 (5-19); BLOOD UREA NITROGEN 35 mg/dL (7-20); CALCIUM 9.8 mg/dL (8.4-10.2); CARBON DIOXIDE 26 mmol/L (22-30); CHLORIDE 101 mmol/L (98-107); GLUCOSE 171 mg/dL (75-110); IRON(TIBC) 64.4 ug/dL (37-170); PHOSPHORUS 3.7 mg/dL (2.5-4.5); POTASSIUM 4.3 mmol/L (3.6-5.0)
[2019-03-27 10:37] LABS: CREATININE URINE 61.3 mg/dL (Not Estab.); MICROALBUMIN URINE 43.5 ug/mL (Not Estab.)
== END ==
LOC: OD 08:55
PROVIDERS: ATTEND Internal Medicine Nephrology
DX: I12.9 Hypertensive chronic kidney disease with stage 1 through stage 4 chronic kidney disease, or unspecified chronic kidney disease (principal); N18.3 Chronic kidney disease, stage 3 (moderate); E11.22 Type 2 diabetes mellitus with diabetic chronic kidney disease; R80.9 Proteinuria, unspecified; D63.1 Anemia in chronic kidney disease
CPT/HCPCS: 36415; 80069; 81001; 82043; 82306; 82570; 82728; 83540; 83550; 83970; 85025

== ENCOUNTER → 2019-04-30 | Outpatient (CLI) | payer MEDICARE, MEDICAID ==
--- NOTE | 2019-04-30 15:01 | WOMENS IMAGING REPORT ---
EXAM DESCRIPTION: BILAT SCREENING MAMMO W/CAD COMPLETED DATE/TIME: 04/30/2019 11:49 am REASON FOR STUDY: Z12.31 SCREENING MAMMO Z12.31 ENCNTR SCREEN MAMMOGRAM FOR MALIGNANT NEOPLASM OF B RE COMPARISON: 12/05/2017 and 12/16/2014. EXAM PARAMETERS: Standard craniocaudal and mediolateral oblique views of each breast recorded using digital acquisition. Read with the assistance of CAD. [facility] - Risk Analyst Version 9.2 LIMITATIONS: None. FINDINGS: Findings present which are benign by mammographic criteria. No suspicious masses, calcifi cations or architectural distortion. Pertinent benign findings: Stable calcifications and biopsy changes in both breasts. Benign mammographic findings may include one or more of the following: Smooth masses, popcorn/rim/co arse calcifications, asymmetries, post-procedure changes, and lesions with long-standing stability. IMPRESSION: BENIGN MAMMOGRAPHIC FINDINGS. BIRADS 2 BREAST DENSITY: b. There are scattered areas of fibroglandular density. BIRAD: ASSESSMENT: 2 BENIGN FINDING(S) RECOMMENDATION: ROUTINE SCREENING COMMENT: The patient has been notified of the results by letter per MQSA requirements. Additional no tification policies are in place for contacting patient with suspicious or incomplete findings. Quality ID #225: The [employer] recommends an annual screening mammogram for women aged 40 years or over. This facility utilizes a reminder system to ensure that all patients receive reminder letters, and/or direct phone calls for appointments. This includes reminders for routine scr eening mammograms, diagnostic mammograms, or other Breast Imaging Interventions when appropriate. Th is patient will be placed in the appropriate reminder system. TECHNICAL DOCUMENTATION: FINDING NUMBER: (1) ASSESSMENT: (1) JOB ID: [id number] [employer]- All Rights Reserved Reading location - IP/workstation name: [email or web address]
== END ==
LOC: WI 10:50
PROVIDERS: ATTEND Internal Medicine
DX: Z12.31 Encounter for screening mammogram for malignant neoplasm of breast (principal)
CPT/HCPCS: 77067

== ENCOUNTER → 2019-05-14 | Outpatient (CLI) | payer MEDICARE, MEDICAID ==
[2019-05-14 08:59] LABS: ABSOLUTE EOSINOPHILS # (AUTO) 0.3 10^3/uL (0.0-0.6); ABSOLUTE LYMPHOCYTES (AUTO) 2.5 10^3/uL (0.5-4.7); ABSOLUTE MONOCYTES (AUTO) 0.5 10^3/uL (0.1-1.4); ABSOLUTE NEUT (AUTO) 3.6 10^3/uL (1.7-8.2); BASOPHILS % (AUTO) 0.6 % (0-2); EOSINOPHILS % (AUTO) 4.3 % (0-6); HEMATOCRIT 32.8 % (36.0-47.0); HEMOGLOBIN 10.8 g/dL (12.0-15.5); LYMPHOCYTES % (AUTO) 35.1 % (13-45); MEAN CORPUSCULAR HEMOGLOBIN 29.5 pg (27.0-33.4); MEAN CORPUSCULAR VOLUME 89 fl (80-97); MONOCYTES % (AUTO) 7.9 % (3-13); PLATELET COUNT 254 10^3/uL (150-450); RED BLOOD COUNT 3.67 10^6/uL (3.72-5.28); RED CELL DISTRIBUTION WIDTH 13.3 % (11.5-14.0); SEGMENTED NEUTROPHILS % (AUTO) 52.1 % (42-78); TOTAL CELLS COUNTED % (AUTO) 100 %
[2019-05-14 09:10] LABS: APPEARANCE,URINE CLEAR; BILIRUBIN,URINE NEGATIVE (NEGATIVE); COLOR,URINE YELLOW; GLUCOSE, URINE NEGATIVE (NEGATIVE); KETONES,URINE NEGATIVE (NEGATIVE); LEUKOCYTE ESTERASE,URINE LARGE (NEGATIVE); NITRITE,URINE NEGATIVE (NEGATIVE); PROTEIN,URINE NEGATIVE (NEGATIVE); URINE SPECIFIC GRAVITY 1.008; UROBILINOGEN,URINE NEGATIVE mg/dL (<2.0)
[2019-05-14 09:10] LABS: ALBUMIN 3.9 g/dL (3.5-5.0); ANION GAP 11 (5-19); BLOOD UREA NITROGEN 45 mg/dL (7-20); CALCIUM 9.4 mg/dL (8.4-10.2); CARBON DIOXIDE 27 mmol/L (22-30); CHLORIDE 102 mmol/L (98-107); GLUCOSE 206 mg/dL (75-110); IRON(TIBC) 58.2 ug/dL (37-170); POTASSIUM 4.2 mmol/L (3.6-5.0)
[2019-05-15 12:37] LABS: CREATININE URINE 47.8 mg/dL (Not Estab.); MICROALBUMIN URINE 22.2 ug/mL (Not Estab.)
== END ==
LOC: OD 08:02
PROVIDERS: ATTEND Internal Medicine Nephrology
DX: N18.3 Chronic kidney disease, stage 3 (moderate) (principal); I12.9 Hypertensive chronic kidney disease with stage 1 through stage 4 chronic kidney disease, or unspecified chronic kidney disease; E11.9 Type 2 diabetes mellitus without complications; R80.9 Proteinuria, unspecified; D63.1 Anemia in chronic kidney disease; N39.0 Urinary tract infection, site not specified
CPT/HCPCS: 36415; 80069; 81001; 82043; 82306; 82570; 82728; 83540; 83550; 83970; 85025; 87086; 87088; 87186

== ENCOUNTER → 2020-02-29 | Outpatient (CLI) | payer MEDICARE, MEDICAID ==
--- NOTE | 2020-02-29 12:52 | RADIOLOGY REPORT (SQ) ---
EXAM DESCRIPTION: CHEST PA/LATERAL IMAGES COMPLETED DATE/TIME: 02/29/2020 9:39 am REASON FOR STUDY: ACUTE BRONCHITIS, UNSPECIFIED COMPARISON: 05/26/2017 EXAM PARAMETERS: NUMBER OF VIEWS: two views TECHNIQUE: Digital Frontal and Lateral radiographic views of the chest acquired. RADIATION DOSE: NA LIMITATIONS: none FINDINGS: LUNGS AND PLEURA: No opacities, masses or pneumothorax. No pleural effusion. MEDIASTINUM AND HILAR STRUCTURES: No masses or contour abnormalities. HEART AND VASCULAR STRUCTURES: Heart normal size. No evidence for failure. BONES: No acute findings. HARDWARE: None in the chest. OTHER: No other significant finding. IMPRESSION: NO SIGNIFICANT RADIOGRAPHIC FINDING IN THE CHEST. TECHNICAL DOCUMENTATION: JOB ID: [id number] [employer]- All Rights Reserved Reading location - IP/workstation name: [email or web address]
== END ==
LOC: OD 09:17
PROVIDERS: ATTEND Internal Medicine
DX: J20.9 Acute bronchitis, unspecified (principal)
CPT/HCPCS: 71046

== ENCOUNTER → 2020-03-01 | Outpatient (CLI) | payer MEDICARE, MEDICAID ==
--- NOTE | 2020-03-01 09:48 | ER RDC ASSESSMENT REPORT ---
Intake - In the Last 14 days Have you traveled outside [place]?: No Have you been in close contact with someone CONFIRMED: No Worked in Healthcare?: No - Symptoms Subjective Fever([place] feverish): No Chills: No Muscule Aches: No Runny Nose: No Sore Throat: No Cough (New or worsening chronic cough): Yes Shortness of breath: No Nausea or Vomiting: No Headache: No Abdominal Pain: No Diarrhea(3 or more loose stools in last 24 hours): No - Do you have any of the following Chronic lung disease: Asthma or emphysema or COPD: Yes Chronic Lung Disease Comment: Asthma Cystic Fibrosis: No Diabetes: Yes Diabetes Comment: Type II High Blood Pressure: Yes Cardiovascular Disease: Yes Chronic Kidney Disease: Yes Chronic Kidney Disease Comment: ESRD stage III Chronic Liver Disease: No Chronic blood disorder like Sickle Cell Disease: No Weak immune system due to disease or medication: No Neurologic condition that limits movement: No Developmental delay - Moderate to Severe: No Recent (within past 2 weeks) or current : No Morbid Obesity (>100 pounds over ideal weight): Yes - Objective Temperature: 98.3 F Pulse Rate: 70 Respiratory Rate: 18 Blood Pressure: 111/56 O2 Sat by Pulse Oximetry: 97 Objective: Patient is a well-appearing 69-year-old female, who presents today for COVID-19 screening. Disposition: Home; Selfcare General - General Stated Complaint: Persistent chronic cough Mode of Arrival: Ambulatory Information source: Patient Notes: The patient was evaluated during the global COVID-19 pandemic. That diagnosis was suspected/considered upon initial presentation. Their evaluation, treatment, and testing was consistent with current guidelines for patients who present with complaints or symptoms that may be related to COVID-19. Patient was recently evaluated by her PCP for this chronic, persistent cough. States she had a CXR and was prescribed Azithromycin (Zpac), and advised to have COVID testing completed. - HPI Patient complains to provider of: Upper respiratory symptoms Onset: Other - Chronic, persistent cough. Onset/Duration: Constant, Persistent Quality of pain: No pain Severity: None Pain Level: Denies Associated symptoms: Productive cough Exacerbated by: Denies Relieved by: Denies Similar symptoms previously: Yes Recently seen / treated by doctor: Yes - Dr. Barakat Notes: Patient was recently evaluated by her PCP Dr. Barakat for this chronic, persistent cough. States she had a CXR and was prescribed Azithromycin (Zpac), and advised to have COVID testing completed. - Related Data Allergies/Adverse Reactions: aspirin [Aspirin] Allergy (Mild, Verified 05/26/17 18:22) upset stomach Sulfa (Sulfonamide Antibiotics) Allergy (Mild, Verified 05/26/17 18:22) sores in mouth Past Medical History - General Information source: Patient - Social History Smoking Status: Never Smoker Cigarette use (# per day): No Chew tobacco use (# tins/day): No Smoking Education Provided: No Frequency of alcohol use: None Drug Abuse: None Occupation: Retired Lives with: Family Family History: Reviewed & Not Pertinent Patient has suicidal ideation: No Patient has homicidal ideation: No - Past Medical History Cardiac Medical History: Reports: Hx Hypercholesterolemia, Hx Hypertension - medicated Denies: Hx Heart Attack Pulmonary Medical History: Reports: Hx Asthma - medicated/no hospitalizations Neurological Medical History: Denies: Hx Cerebrovascular Accident, Hx Seizures Endocrine Medical History: Reports: Hx Diabetes Mellitus Type 2, Hx Hypothyroidism Renal/ Medical History: Denies: Hx Peritoneal Dialysis GI Medical History: Denies: Hx Hepatitis, Hx Hiatal Hernia, Hx Ulcer Musculoskeletal Medical History: Reports Hx Gout Psychiatric Medical History: Reports: Hx Depression Infectious Medical History: Denies: Hx Hepatitis Past Surgical History: Reports: Hx Appendectomy, Hx Cardiac Catheterization, Other - Breast biopsy. Denies: Hx Hysterectomy, Hx Mastectomy, Hx Open Heart Surgery, Hx Pacemaker Physical Exam - General General appearance: Appears well In distress: None Notes: PHYSICAL EXAMINATION: GENERAL: Well-appearing and in no acute distress. HEAD: Atraumatic, normocephalic. EYES: sclera anicteric, conjunctiva are normal. ENT: nares patent. Moist mucous membranes. NECK: Normal range of motion, supple without lymphadenopathy. LUNGS: CTAB and equal. No wheezes rales or rhonchi. HEART: Regular rate and rhythm without murmurs. ABDOMEN: Soft, nontender, normal bowel sounds, no guarding. EXTREMITIES: Normal range of motion, no pitting edema. No cyanosis. BACK: No midline or CVA tenderness. NEUROLOGICAL: Cranial nerves grossly intact. Normal speech. PSYCH: Normal mood, normal affect. SKIN: Warm, Dry, normal color and turgor, no obvious lesions or rash noted. Diagnostic Results Laboratory Results: Patient advised at this time they are considered a Person Under Investigation (PUI) for the COVID-19 Coronavirus. They have been made aware it is currently taking 5-7 days to receive their results, and The [facility] Department will call to advise them of a POSITIVE result, and an [facility] support team assoc will call to advise of a NEGATIVE result. Patient Education/Counseling Counseling/Education: Patient presents with upper respiratory symptoms worrisome for possible COVID- 19. Patient does not have symptoms worrisome as an emergency such as difficulty breathing, shortness of breath, chest pain, pressure, confusion or cyanosis. Patient appears suitable for discharge. Patient's vital signs are stable and patient is nontoxic in appearance. Good return precautions have been discussed with patient, patient verbalized understanding and is agreeable with discharge plan of care at this time. Patient provided COVID-19 discharge instructions to include: As a person under investigation for COVID-19, the [facility] and [facility] Services, division of public health advises you to adhere to the following guidance until your test results are reported to you. If your test result is positive, you will receive additional information from your provider and your local health department at that time. Remain at home until you are cleared by the health provider or public health authorities. Keep a log of visitors to your home, notify any visitors to your home of your isolation status. If you plan to move to a new address or leave the county, notify the local health department in your County. Call your doctor or seek care if you have an urgent medical need. Before seeking medical care, call ahead to get instructions from the provider before arriving at the medical office clinic or hospital. Notify them that you are being tested for the virus that causes COVID-19 so that arrangements can be made, as necessary, to prevent transmission to others in the healthcare setting. Next, notify the local health department in your county. If a medical emergency arises and you need to call 911, inform dispatch and the first responders that you are being tested for the virus that causes COVID-19. Next, notify the local health department in your county. Guidance for worsening S/SX: For worsening symptoms, patient has been advised to contact their Primary Care Provider, or go to the nearest Emergency Department. RDC Discharge - Discharge Clinical Impression: COVID-19 Screening URI (upper respiratory infection) Qualifiers: URI type: unspecified URI Qualified Code(s): J06.9 - Acute upper respiratory infection, unspecified Condition: Stable Disposition: Home; Selfcare
[2020-03-01 10:13] VITALS: BP 111/56
== END ==
LOC: RDC 09:02
PROVIDERS: ATTEND Nurse Practitioner Family
DX: Z20.828 Contact with and (suspected) exposure to other viral communicable diseases (principal)
CPT/HCPCS: U0003; C9803; 87635; 99201; 99211

== ENCOUNTER → 2020-03-27 | Outpatient (CLI) | payer MEDICARE, MEDICAID ==
[2020-03-27 10:34] LABS: ABSOLUTE EOSINOPHILS # (AUTO) 0.3 10^3/uL (0.0-0.6); ABSOLUTE LYMPHOCYTES (AUTO) 2.1 10^3/uL (0.5-4.7); ABSOLUTE MONOCYTES (AUTO) 0.4 10^3/uL (0.1-1.4); ABSOLUTE NEUT (AUTO) 2.7 10^3/uL (1.7-8.2); BASOPHILS % (AUTO) 0.9 % (0-2); EOSINOPHILS % (AUTO) 5.2 % (0-6); HEMATOCRIT 35.2 % (36.0-47.0); HEMOGLOBIN 11.8 g/dL (12.0-15.5); LYMPHOCYTES % (AUTO) 38.9 % (13-45); MEAN CORPUSCULAR HEMOGLOBIN 30.2 pg (27.0-33.4); MEAN CORPUSCULAR HGB CONC 33.5 g/dL (32.0-36.0); MEAN CORPUSCULAR VOLUME 90 fl (80-97); MONOCYTES % (AUTO) 6.9 % (3-13); PLATELET COUNT 170 10^3/uL (150-450); RED BLOOD COUNT 3.89 10^6/uL (3.72-5.28); RED CELL DISTRIBUTION WIDTH 13.6 % (11.5-14.0); SEGMENTED NEUTROPHILS % (AUTO) 48.1 % (42-78); TOTAL CELLS COUNTED % (AUTO) 100 %; WHITE BLOOD COUNT 5.5 10^3/uL (4.0-10.5)
[2020-03-27 10:56] LABS: CHOLESTEROL 188.13 mg/dL (0-200); TRIGLYCERIDES 308 mg/dL (<150)
[2020-03-27 11:07] LABS: DIRECT LDL 72 mg/dL (<100)
[2020-03-27 11:11] LABS: VLDL CHOLESTEROL 61.6 mg/dL (10-31)
== END ==
LOC: OD 08:42
PROVIDERS: ATTEND Nurse Practitioner Psychiatric/Mental Health
DX: F33.0 Major depressive disorder, recurrent, mild (principal)
CPT/HCPCS: 36415; 80061; 85025

== ENCOUNTER → 2020-07-10 | Outpatient (CLI) | payer MEDICARE, OTHER ==
[2020-07-10 11:09] LABS: ANION GAP 11 (5-19); BLOOD UREA NITROGEN 26 mg/dL (7-20); CALCIUM 9.8 mg/dL (8.4-10.2); CARBON DIOXIDE 30 mmol/L (22-30); CHLORIDE 92 mmol/L (98-107); POTASSIUM 3.9 mmol/L (3.6-5.0)
[2020-07-10 11:47] LABS: GLUCOSE 456 mg/dL (75-110)
--- OUTSIDE RECORDS SUMMARY | 2020-07-10 14:29 | XMS REPORT ---
:1950 Author Organization [facility] Address [facility] [address] [place] [address] Care Team Providers Name Role Phone AYUSH WISEMAN Primary Care Physician Unavailable Allergies, Adverse Reactions, Alerts Allergy Allergy Status Severity Reaction(s) Onset Inactive Treating C omments Name Type Date Date Clinician Aspirin Allergy to Active substance Sulfa Allergy to Active (Sulfonam substance renee Antibioti cs) Medications Ordered Filled Start Stop Current Ordering Indication Dosage Frequency Signature Comments Components Medication Medication Date Date Medication? Clinician (SIG) Name Name Afluria No Afluria Quad Quad 60 mcg (15 60 mcg (15 mcg x mcg x 4)/0.5 mL 4)/0.5 mL intramuscul intramuscu ar susp. lar susp. [id number] 54Exp5/01/19 [id number] amlodipine No amlodipine 5 mg tablet 5 mg tablet atorvastati No atorvastat n 20 mg in 20 mg tablet tablet carvedilol No carvedilol 6.25 mg 6.25 mg tablet tablet ciprofloxac No ciprofloxa in 250 mg deepali 250 mg tablet tablet clonazepam No clonazepam 1 mg tablet 1 mg tablet desvenlafax No desvenlafa ine xine succinate succinate ER 50 mg ER 50 mg tablet,exte tablet,ext nded ended release 24 release 24 hr hr ergocalcife No ergocalcif rol tolu (vitamin (vitamin D2) 1,250 D2) 1,250 mcg (50,000 mcg unit) (50,000 capsule unit) TAKE ONE capsule CAPSULE BY TAKE ONE MOUTH EVERY CAPSULE BY WEEK 28 MOUTH EVERY WEEK 28 fenofibrate No fenofibrat 160 mg e 160 mg tablet tablet ferrous No ferrous sulfate 325 sulfate mg (65 mg 325 mg (65 iron) mg iron) tablet TAKE tablet ONE TABLET TAKE ONE BY MOUTH TABLET BY DAILY MOUTH DAILY fluticasone No fluticason propionate e 50 propionate mcg/actuati 50 on nasal mcg/actuat spray,suspe ion nasal nsion spray,susp ension Fluzone No Fluzone High-Dose High-Dose [id number] (PF) 180 (PF) 180 mcg/0.5 mL mcg/0.5 mL intramuscul intramuscu ar syringe lar lot [id number] syringe exp; lot 09/04/18 [id number] exp; 09/04/18 furosemide No furosemide 40 mg 40 mg tablet tablet gabapentin No gabapentin 100 mg 100 mg capsule capsule Humalog No Humalog KwikPen KwikPen (U-100) (U-100) Insulin 100 Insulin unit/mL 100 subcutaneou unit/mL s subcutaneo us hydrocodone No hydrocodon 5 e 5 mg-acetamin mg-acetami ophen 325 nophen 325 mg tablet mg tablet hydroxyzine No hydroxyzin pamoate 50 e pamoate mg capsule 50 mg capsule Levemir No Levemir FlexTouch FlexTouch U-100 U-100 Insulin 100 Insulin unit/mL (3 100 mL) unit/mL (3 subcutaneou mL) s pen subcutaneo us pen levothyroxi No levothyrox ne 50 mcg ine 50 mcg tablet tablet losartan No losartan 100 mg 100 mg tablet tablet losartan 50 No losartan mg tablet 50 mg tablet montelukast No montelukas 10 mg t 10 mg tablet tablet Novolog No Novolog Flexpen Flexpen U-100 U-100 Insulin Insulin aspart 100 aspart 100 unit/mL (3 unit/mL (3 mL) mL) subcutaneou subcutaneo s us omega-3 No omega-3 acid ethyl acid ethyl esters 1 esters 1 gram gram capsule capsule Pneumovax No Pneumovax 23 25 23 25 mcg/0.5 mL mcg/0.5 mL injection injection syringe use syringe as directed use as directed quetiapine No quetiapine 300 mg 300 mg tablet tablet Shingrix No Shingrix (PF) 50 (PF) 50 mcg/0.5 mL mcg/0.5 mL intramuscul intramuscu ar lar suspension, suspension kit use as , kit use directed as directed simvastatin No simvastati 40 mg n 40 mg tablet tablet Uloric 80 No Uloric 80 mg tablet mg tablet Victoza No Victoza 2-Galdino 0.6 2-Galdino 0.6 mg/0.1 mL mg/0.1 mL (18 mg/3 (18 mg/3 mL) mL) subcutaneou subcutaneo s pen us pen injector injector allopurinol No allopurino 100 mg l 100 mg tablet tablet Problems Condition Condition Condition Status Onset Resolution Last Treatin g Comments Name Details Category Date Date Treatment Clinician Date Pain of Pain of Problem Active left Left 3-12 shoulder Shoulder 00:00: joint Joint 00 Not on file Not on file [id number] Procedures Procedure Date / Time Performed Performing Clinician Devic e DRAIN/INJ JOINT/BURSA W/O US 2019-08-30 00:00:00 fluoroscopic guided injection 2019-08-06 00:00:00 (PROC) Results Test Description Test Time Test Comments Text Results Atomic Results Result Comments SARS-CoV-2 RNA Resp Ql ADEBAYO+probe 2020-03-03 00:00:00 Test Item Value Reference Range Comments SARS-CoV-2 RNA Resp Ql ADEBAYO+probe Not detected [place] [facility] Case ID: (test code = 48140-1) [id number] Assessments Condition Name Status Diagnosis Date Treating Clinici an Pain of left shoulder joint Active 2019-08-30 10:11:35 Localized, primary osteoarthritis of Active 2019-08-06 11:25:07 the shoulder region Encounters Start End Encounter Admission Attending Care Care Encounter ID Date/Time Date/Time Type Type Clinicians Facility Department 2020-02-29 2020-02-29 Outpatient [facility] [id number] 00:00:00 00:00:00 2019-08-30 2019-08-30 Warren Campos [facility] 9 [id number] 00:00:00 00:00:00 DO She: troy [facility] [address] [place] [id number], Ph. 2019-08-06 2019-08-06 Chandler [facility] [id number] 00:00:00 00:00:00 Rodney simmons [facility] P.A[facility] 0217 ERICA Weinstein: [address] [place] [id number], Ph. Plan of Treatment Planned Activity Planned Date Details Comments Future Scheduled Test [code = ] Future Scheduled Test [code = ] Future Scheduled Test [code = ] Future Scheduled Test [code = ] Future Scheduled Test [code = ] Future Scheduled Test [code = ] Future Scheduled Test [code = ] Future Scheduled Test [code = ] Social History Smoking Status Start Date Stop Date Unknown If Ever Smoked Vital Signs Vital Name Observation Time Observation Value Comments Height 2019-08-30 00:00:00 62 [in_i] BMI (Body Mass Index) 2019-08-30 00:00:00 47.2 kg/m2 Body Weight 2019-08-30 00:00:00 258 [lb_av] Height 2019-08-06 00:00:00 62 [in_i] BMI (Body Mass Index) 2019-08-06 00:00:00 47.2 kg/m2 Body Weight 2019-08-06 00:00:00 258 [lb_av] Hospital Discharge Instructions 1. Localized, primary osteoarthritis of the shoulder region fluoroscopic guided injection (PROC)- Specify site: Discussion Note: None recorded. Patient educational handouts: No information available.
[2020-07-11 12:37] LABS: CREATININE URINE 45.3 mg/dL (Not Estab.); MICROALBUMIN URINE 74.3 ug/mL (Not Estab.)
== END ==
LOC: OD 09:07
PROVIDERS: ATTEND Internal Medicine Nephrology
DX: E11.22 Type 2 diabetes mellitus with diabetic chronic kidney disease (principal); I12.9 Hypertensive chronic kidney disease with stage 1 through stage 4 chronic kidney disease, or unspecified chronic kidney disease; N18.30 Chronic kidney disease, stage 3 unspecified; R80.9 Proteinuria, unspecified
CPT/HCPCS: 36415; 80048; 82043; 82570